=== PATIENT | female | born 1935 | race Caucasian/White ===

== ENCOUNTER 2017-05-02 08:00 | Outpatient (CLI) | payer MEDICARE, OTHER ==
[2017-05-02 18:06] LABS: ALBUMIN/GLOBULIN RATIO 1.6 (1.0-2.2); BILIRUBIN,TOTAL 1.1 mg/dL (0.2-1.0); BUN - BLOOD UREA NITROGEN 16 mg/dL (6-20); CALCIUM 8.9 mg/dL (8.5-10.3); CARBON DIOXIDE - CO2 26 mmol/L (21-32); CHLORIDE 100 mmol/L (101-111); CHOL/HDL RATIO 2.6 (<4.4); CHOLESTEROL 215 mg/dL; CREATININE 0.8 mg/dL (0.4-1.0); GFR - MDRD 69 (>89); GLUCOSE 91 mg/dL (70-100); HDL CHOLESTEROL 83 mg/dL; LDL/HDL RATIO 1.4 (<4.4); POTASSIUM 4.1 mmol/L (3.5-5.0); SODIUM 135 mmol/L (135-145); TOTAL PROTEIN 6.5 g/dL (6.7-8.2); TRIGLYCERIDES 78 mg/dL; VLDL CHOLESTEROL 16 mg/dL
== END 2017-05-02 08:01 | disposition home or self-care (01) ==
LOC: LAB.S 08:00
PROVIDERS: ATTEND Nurse Practitioner Family
DX: E78.5 Hyperlipidemia, unspecified (principal)
CPT/HCPCS: 36415; 80053; 80061; 84443

== ENCOUNTER 2018-08-30 15:08 | Outpatient (CLI) | payer MEDICARE, OTHER ==
--- NOTE | 2018-08-31 09:27 | CT Report ---
Reason: UPPER > LOWER NECK PAIN Procedure Date: 08/30/2018 Accession Number: [id number] / [id number] Procedure: CT - Cervical Spine W/O CPT Code: FULL RESULT: EXAM: CT CERVICAL SPINE WITHOUT CONTRAST DATE: 08/30/2018 03:20 PM. HISTORY: Upper/lower neck pain. COMPARISONS: XR CERVICAL SPINE 4 VIEW (G) 08/02/2018 3:[address] C-SPINE W CONTRAST 02/25/2010 2:38 PM. XR CHEST PA AND LAT 04/10/2012 3:[address] ABDOMEN, PELVIS W/CONTRAST 11/20/2014 7:26 PM. TECHNIQUE: Thin-section axial images were acquired of the cervical spine without contrast. Post-processing: Coronal and sagittal reformats. Other: None. In accordance with CT protocol optimization, one or more of the following dose reduction techniques were utilized for this exam: automated exposure control, adjustment of mA and/or KV based on patient size, or use of iterative reconstructive technique. FINDINGS: Alignment: 1. Anterolisthesis 3 mm C4 and C5. 2. Anterolisthesis 2 mm C5 on C6. 3. Anterolisthesis 2 mm C6 on C7. Bones: Negative for odontoid fracture. The atlas is without disruption. Remote to C7 vertebral body fracture. The facet joints are negative for fracture. Mild chronic compression C7 vertebral body with concave deformity of the inferior right C7 vertebral body endplate and 20% loss of vertebral body height without change as compared to the CT 02/25/2010. Focal sclerosis right C7 vertebral body is without change as compared to the CT 02/25/2010. Interspace Levels/Facets: C1-C2: Unremarkable. C2-C3: Right C2-C3 ankylosis. Left C2-C3 severe facet hypertrophy with ankylosis. Negative for central spinal canal stenosis or foraminal stenosis. C3-C4: Central posterior 2 mm disk protrusion. Severe bilateral facet hypertrophic arthropathy. Mild left foraminal stenosis. Moderate right foraminal stenosis from facet hypertrophic arthropathy. C4-C5: Negative for central spinal canal stenosis. Severe facet hypertrophic arthropathy. The left neural foramen is negative for stenosis. Moderate right foraminal stenosis from facet hypertrophy. C5-C6: Posterior 4 mm central calcified disk herniation with mild central spinal canal stenosis. Central AP spinal canal diameter is 9 mm. Severe bilateral facet hypertrophic arthropathy. The posterior calcified disk herniation has developed since the CT myelogram cervical spine 02/25/2010. Severe right foraminal stenosis. Negative for left foraminal stenosis. Mild disk degeneration. C6-C7: Moderate disk degeneration. Posterior central 2 mm disk protrusion. Severe facet hypertrophic arthropathy. The right neural foramen is negative for stenosis. Mild left foraminal stenosis from facet hypertrophy. C7-T1: Moderate disk degeneration. Severe facet joint arthrosis. Negative for foraminal stenosis. Posterior 2 mm disk protrusion osteophyte complex. Musculature: Normal. No fatty atrophy. Other: The paravertebral and prevertebral soft tissues are unremarkable. The lung apices are clear. IMPRESSION: 1. Central posterior 4 mm calcified disk herniation C5-C6 interspace with mild central spinal canal stenosis. Disk herniation is new as compared to the CT myelogram 02/25/2010. 2. Remote compression fracture right C7 vertebral body with concave deformity of the inferior vertebral body endplate, 20% loss of vertebral body height and right C6 vertebral body sclerosis without change as compared to the CT cervical spine 02/25/2010. 3. There is severe diffuse cervical facet joint arthrosis and ankylosis of the C2-C3 facet joints. 4. Anterolisthesis 3 mm C4 on C5, anterolisthesis 2 mm C5 on C6 and anterolisthesis 2 mm C6 on C7. 5. Severe right C5-C6, moderate right C4-C5 and moderate right C3-C4 foraminal stenosis. RADIA
== END 2018-08-30 15:09 | disposition home or self-care (01) ==
LOC: DI 15:08
PROVIDERS: ATTEND Physical Medicine & Rehabilitation
DX: M47.812 Spondylosis without myelopathy or radiculopathy, cervical region (principal); R51 Headache; M50.33 Other cervical disc degeneration, cervicothoracic region; M48.03 Spinal stenosis, cervicothoracic region; M50.222 Other cervical disc displacement at C5-C6 level; M43.22 Fusion of spine, cervical region
CPT/HCPCS: 72125

== ENCOUNTER 2018-12-29 08:00 | Outpatient (CLI) | payer MEDICARE, OTHER | END 2018-12-29 23:59 | disposition home or self-care (01) | LOC: LAB.R 08:00 | PROVIDERS: ATTEND Physician Assistant Medical | DX: R30.0 Dysuria (principal) | CPT/HCPCS: 87086 ==

== ENCOUNTER 2019-04-05 15:25 | Outpatient (CLI) | payer MEDICARE, OTHER ==
[2019-04-05 17:52] LABS: ALBUMIN 3.8 g/dL (3.2-5.5); ALBUMIN/GLOBULIN RATIO 1.3 (1.0-2.2); BILIRUBIN,TOTAL 0.8 mg/dL (0.2-1.0); CALCIUM 8.9 mg/dL (8.5-10.3); CREATININE 0.9 mg/dL (0.4-1.0); TOTAL PROTEIN 6.8 g/dL (6.7-8.2)
== END 2019-04-05 15:26 | disposition home or self-care (01) ==
LOC: LAB.S 15:25
PROVIDERS: ATTEND Physician Assistant Medical
DX: E87.6 Hypokalemia (principal)
CPT/HCPCS: 36415; 80053

== ENCOUNTER 2019-07-17 07:45 | Outpatient (CLI) | payer MEDICARE, OTHER ==
[2019-07-17 14:44] LABS: ALBUMIN 4.1 g/dL (3.2-5.5); ALBUMIN/GLOBULIN RATIO 1.9 (1.0-2.2); ALKALINE PHOSPHATASE 35 IU/L (42-121); ALT ALANINE AMINOTRANSFERASE 27 IU/L (10-60); AST ASPARTATE AMINOTRANSFERASE 24 IU/L (10-42); BILIRUBIN,TOTAL 1.5 mg/dL (0.2-1.0); BUN - BLOOD UREA NITROGEN 17 mg/dL (6-20); CALCIUM 8.9 mg/dL (8.5-10.3); CARBON DIOXIDE - CO2 28 mmol/L (21-32); CHLORIDE 101 mmol/L (101-111); CHOL/HDL RATIO 2.7 (<4.4); CHOLESTEROL 271 mg/dL; CREATININE 0.9 mg/dL (0.4-1.0); GFR - MDRD 60 (>89); GLUCOSE 94 mg/dL (70-100); HDL CHOLESTEROL 99 mg/dL; LDL CHOLESTEROL,CALCULATED 151 mg/dL; LDL/HDL RATIO 1.5 (<4.4); SODIUM 136 mmol/L (135-145); TOTAL PROTEIN 6.3 g/dL (6.7-8.2); VLDL CHOLESTEROL 21 mg/dL
== END 2019-07-17 07:46 | disposition home or self-care (01) ==
LOC: LAB.S 07:45
PROVIDERS: ATTEND Physician Assistant Medical
DX: Z51.81 Encounter for therapeutic drug level monitoring (principal); Z79.899 Other long term (current) drug therapy; E78.5 Hyperlipidemia, unspecified
CPT/HCPCS: 36415; 80053; 80061; 83721

== ENCOUNTER 2019-08-22 11:00 | Outpatient (CLI) | payer MEDICARE, OTHER | END 2019-08-22 23:59 | disposition home or self-care (01) | LOC: LAB.R 11:00 | PROVIDERS: ATTEND Physician Assistant Medical | DX: J02.9 Acute pharyngitis, unspecified (principal) | CPT/HCPCS: 87070 ==

== ENCOUNTER 2019-08-28 14:55 | Outpatient (CLI) | payer MEDICARE, OTHER ==
--- NOTE | 2019-08-29 11:40 | DEXA Report ---
Reason: POSTMENOPAUSAL Procedure Date: 08/28/2019 Accession Number: [id number] / [id number] Procedure: DEX - Dexa Spine and/or Hip CPT Code: Final Report FULL RESULT: EXAM: Dexa Spine and/or Hip, Dexa Forearm DATE: 08/28/2019 3:45 PM CLINICAL HISTORY: POSTMENOPAUSAL TECHNIQUE: Dual energy x-ray absorptiometry (DXA) was performed on a [employer] System. Regions measured are the AP Spine and left forearm. Patient has bilateral hip replacements. COMPARISON: None. In accordance with the International Society for Clinical Densitometry (ISCD) guidelines, data from previous exams may be reanalyzed using current recommendations and techniques. This is done to allow a more accurate basis for comparison with the current study. FINDINGS: The data for the lumbar spine is as follows: Fusion hardware lower lumbar spine BMD (g/cm/cm) T-SCORE Z-SCORE REGION L1 1.159 0.2 1.6 L2 1.388 1.6 2.9 TOTAL 1.274 0.9 2.2 NOTE: All evaluable vertebrae are used for classification The data for the left forearm is as follows: BMD (g/cm/cm) T-SCORE Z-SCORE REGION 1/3 0.698 -2 1 NOTE: The 33% radius of the nondominant forearm is used for classification. IMPRESSION: THE WHO CLASSIFICATION BASED ON THE INTERNATIONAL REFERENCE STANDARD IS OSTEOPENIA, REFERENCE LEFT FOREARM. THE FRACTURE RISK IS INCREASED. RECOMMENDATION: Patients with diagnosis of osteoporosis or osteopenia should have regular bone mineral density assessment. For those eligible for Medicare, routine testing is allowed once every 2 years. Testing frequency can be increased for patients who have rapidly progressing disease or for those who are receiving medical therapy to restore bone mass. COMMENT: World Health Organization (WHO) definitions for osteoporosis and osteopenia: NORMAL BMD: T-score at -1.0 or higher, fracture risk is low OSTEOPENIA BMD: T-score between -1.0 and -2.5, fracture risk is increased. OSTEOPOROSIS BMD: T-score at -2.5 or lower, fracture risk is high. National Osteoporosis Foundation recommends: 1. Obtain adequate dietary calcium (at least 1200 mg per day) and vitamin D (400-800 international units per day). 2. Participate, as appropriate, in regular weightbearing and muscle-strengthening exercise. 3. Avoid tobacco use and reduce alcohol and caffeine intake. 4. For more detailed information see the website at www.NOF.org.
== END 2019-08-28 14:56 | disposition home or self-care (01) ==
LOC: DI 14:55
PROVIDERS: ATTEND Physician Assistant Medical
DX: M85.832 Other specified disorders of bone density and structure, left forearm (principal); Z78.0 Asymptomatic menopausal state; Z96.643 Presence of artificial hip joint, bilateral; Z98.1 Arthrodesis status
CPT/HCPCS: 77080; 77081

== ENCOUNTER 2019-08-28 14:56 | Outpatient (CLI) | payer MEDICARE, OTHER ==
--- NOTE | 2019-08-29 12:43 | Mammography Report ---
Reason: ROUTINE MAMMO Procedure Date: 08/28/2019 Accession Number: [id number] / [id number] Procedure: NADINE - Screening Mammo w/Manny CPT Code: Final Report FULL RESULT: EXAM: Screening Mammo w/Manny DATE: 08/28/2019 3:52 PM CLINICAL HISTORY: Routine screening. History of benign right breast biopsy. TECHNIQUE: (B) - Bilateral CC and MLO views were obtained. COMPARISON: 02/04/2012, 04/21/2010, 08/30/2008, 12/22/2007 PARENCHYMAL PATTERN: (A) - The breasts demonstrate scattered fibroglandular densities bilaterally. FINDINGS: No significant interval change. There are no suspicious masses, calcifications, or areas of distortion. IMPRESSION: Negative examination. BI-RADS category 1. RECOMMENDATION: (ANNUAL) - Recommend routine annual screening mammography. BI-RADS CATEGORY: (1) - Negative. STANDARD QUALIFYING STATEMENTS: 1. This examination was not reviewed with the aid of Computer-Aided Detection (CAD). 2. A negative or benign imaging report should not preclude biopsy if clinically suspicious findings are present. 3. Dense breasts may obscure an underlying neoplasm. 4. This examination was reviewed with the aid of 3D breast imaging (tomosynthesis).
== END 2019-08-28 14:57 | disposition home or self-care (01) ==
LOC: DI 14:56
PROVIDERS: ATTEND Physician Assistant Medical
DX: Z12.31 Encounter for screening mammogram for malignant neoplasm of breast (principal)
CPT/HCPCS: 77063; 77067

== ENCOUNTER 2020-03-06 07:00 | Outpatient (CLI) | payer MEDICARE, OTHER ==
[2020-03-06 21:52] LABS: CANDIDA GROUP DNA NEGATIVE (NEGATIVE); CANDIDA KRUSEI DNA NEGATIVE (NEGATIVE); TRICHOMONAS VAGINALIS DNA NEGATIVE (NEGATIVE)
== END 2020-03-06 23:59 | disposition home or self-care (01) ==
LOC: LAB.R 07:00
PROVIDERS: ATTEND Physician Assistant
DX: R30.0 Dysuria (principal)
CPT/HCPCS: 87086; 87661; 87801

== ENCOUNTER 2020-04-06 05:59 | Outpatient (CLI) | payer MEDICARE, OTHER | END 2020-04-06 06:00 | disposition short-term general hospital (02) | LOC: EMS 05:59 | PROVIDERS: ATTEND Surgery | DX: R11.2 Nausea with vomiting, unspecified (principal); R10.30 Lower abdominal pain, unspecified | CPT/HCPCS: A0425; A0427 ==

== ENCOUNTER 2021-03-31 03:19 | Outpatient (CLI) | payer MEDICARE, OTHER | END 2021-03-31 03:20 | disposition critical access hospital (66) | LOC: EMS 03:19 | DX: R29.898 Other symptoms and signs involving the musculoskeletal system (principal); R11.0 Nausea | CPT/HCPCS: A0425; A0427 ==

== ENCOUNTER 2021-03-31 03:54 | Inpatient (IN) | payer MEDICARE, OTHER ==
[2021-03-31] MEDS ORDERED: METOCLOPRAMIDE 10 MG/2 ML VIAL IVP STA (04:18)
[2021-03-31] MEDS ORDERED: cloNIDine 0.1 MG TABLET PO STA (04:23)
[2021-03-31 04:32] LABS: BASOPHILS # (AUTO) 0.1 10^3/uL (0.0-0.1); BASOPHILS % (AUTO) 1.6 %; EOSINOPHILS # (AUTO) 0.2 10^3/uL (0.0-0.7); EOSINOPHILS % (AUTO) 4.2 %; HCT - HEMATOCRIT 36.6 % (37.0-47.0); HGB - HEMOGLOBIN 12.4 g/dL (12.0-16.0); LYMPHOCYTES # (AUTO) 1.8 10^3/uL (1.5-3.5); MEAN CORPUSCULAR HGB CONC 33.9 g/dL (32.0-36.0); MEAN CORPUSCULAR VOLUME 94.3 fL (81.0-99.0); MEAN PLATELET VOLUME 10.7 fL (7.9-10.8); MONOCYTES # (AUTO) 0.6 10^3/uL (0.0-1.0); MONOCYTES % (AUTO) 9.7 %; PLT - PLATELET COUNT 161 10^3/uL (130-450); RED BLOOD COUNT 3.88 10^6/uL (4.20-5.40); RED CELL DISTRIBUTION WIDTH 13.4 % (12.0-15.0); WHITE BLOOD COUNT 5.7 x10^3/uL (4.8-10.8)
--- NOTE | 2021-03-31 04:33 | ED Physician Documentation ---
History of Present Illness - Stated complaint Stated Complaint: BLE NUMBNESS - Chief complaint Chief Complaint: Neuro - History obtained from History obtained from: Patient - Additonal information Additional information: 85-year-old woman with history of high cholesterol, spinal stenosis/chronic back pain, frequent utis, p/w malaise since 12:30am. Patient states she has been getting up frequently during the night to urinate, especially the past couple days, and this evening tried to get up to go to the bathroom and found her legs were too weak. She called her daughter for help who didn't answer the phone, then called ems. On scene, they assisted her to the restroom and then brought her in. she developed nausea en route and was given zofran 4mg iv with some improvement, but endorsed continued nausea in the ED. fingerstick on scene in the 170s. hypertensive en route. patient endorses BL LE weakness, generalized malaise. denies cp, soa, carpio, vision changes, lightheadedness, numbness. denies urinary or fecal incontinence or retention, groin or extremity numbness. Endorses "feeling jittery". Review of Systems Ten Systems: 10 systems reviewed and negative Constitutional: reports: Fatigue. denies: Fever, Chills Neurologic: reports: Generalized weakness. denies: Focal weakness, Numbness PD PAST MEDICAL HISTORY - Allergies Allergies/Adverse Reactions: Allergies Allergy/AdvReac Type Severity Reaction Status Date / Time Penicillins Allergy Unknown Verified 03/31/21 04:31 PD ED PE NORMAL - Vitals Vital signs reviewed: Yes - General General: Alert and oriented X 3, No acute distress, Well developed/nourished - HEENT HEENT: Atraumatic, PERRL, EOMI - Neck Neck: Supple, no meningeal sign - Cardiac Cardiac: RRR - Respiratory Respiratory: No respiratory distress, Clear bilaterally - Abdomen Abdomen: Non tender, Non distended - Back Back: No spinal TTP - Derm Derm: Normal color, Warm and dry - Extremities Extremities: No deformity, Normal ROM s pain - Neuro Neuro: Alert and oriented X 3, art museum docent 2-12 intact, No motor deficit, No sensory deficit, Normal speech - Psych Psych: Other (flat affect, limited eye contact. mood is described as "jittery") Results - Vitals Vitals: Vital Signs - 24 hr 09/02/1103/31/21 03/31/21 04:03 04:08 06:08 Temperature 36.2 C L Heart Rate 80 62 76 Respiratory 14 18 18 Rate Blood Pressure 194/85 H 179/78 H 184/83 H O2 Saturation 96 94 97 Oxygen O2 Source Room air - EKG (time done) 0426 Rate: Rate (enter#) (76) Rhythm: NSR [place]: Normal Intervals: Normal NE QRS: Normal Ischemia: Normal ST segments - Labs Labs: Laboratory Tests 03/31/21 03/31/21 03/31/21 04:25 04:25 04:25 WBC 5.7 RBC 3.88 L Hgb 12.4 Hct 36.6 L MCV 94.3 MCH 32.0 H MCHC 33.9 RDW 13.4 Plt Count 161 MPV 10.7 Neut # (Auto) 3.0 Lymph # (Auto) 1.8 [place] # (Auto) 0.6 Eos # (Auto) 0.2 Baso # (Auto) 0.1 Absolute Nucleated RBC 0.00 Nucleated RBC % 0.0 Sodium 136 Potassium 3.7 Chloride 99 L Carbon Dioxide 25 Anion Gap 12.0 BUN 19 Creatinine 0.7 Estimated GFR (MDRD) 80 L Glucose 120 H Calcium 9.2 Total Bilirubin 0.9 AST 23 ALT 19 Alkaline Phosphatase 34 L Troponin I High Sens 5.1 Total Protein 6.9 Albumin 4.0 Globulin 2.9 Albumin/Globulin Ratio 1.4 Lipase 23 Urine Color Urine Clarity Urine pH Ur Specific [place] Urine Protein Urine Glucose (UA) Urine Ketones Urine Occult Blood Urine Nitrite Urine Bilirubin Urine Urobilinogen Ur Leukocyte Esterase Urine RBC Urine WBC Ur Squamous Epith Cells Urine Bacteria Urine Culture Comments 03/31/21 04:45 WBC RBC Hgb Hct MCV MCH MCHC RDW Plt Count MPV Neut # (Auto) Lymph # (Auto) [place] # (Auto) Eos # (Auto) Baso # (Auto) Absolute Nucleated RBC Nucleated RBC % Sodium Potassium Chloride Carbon Dioxide Anion Gap BUN Creatinine Estimated GFR (MDRD) Glucose Calcium Total Bilirubin AST ALT Alkaline Phosphatase Troponin I High Sens Total Protein Albumin Globulin Albumin/Globulin Ratio Lipase Urine Color YELLOW Urine Clarity CLEAR Urine pH 7.0 Ur Specific [place] 1.010 Urine Protein NEGATIVE Urine Glucose (UA) NEGATIVE Urine Ketones NEGATIVE Urine Occult Blood NEGATIVE Urine Nitrite NEGATIVE Urine Bilirubin NEGATIVE Urine Urobilinogen 0.2 (NORMAL) Ur Leukocyte Esterase NEGATIVE Urine RBC None Seen Urine WBC 0-3 Ur Squamous Epith Cells RARE Squamous Urine Bacteria None Seen Urine Culture Comments NOT INDICATED PD MEDICAL DECISION MAKING - ED course ED course: 85-year-old woman with past medical history of hyperlipidemia, spinal stenosis, presents with generalized weakness this evening as well as urinary symptoms past couple of days. No focal deficits on exam. She is very hypertensive here in the emergency department but and endorses only generalized malaise, no specific symptoms of end organ damage (eg FND, CP, SOA, dizziness, CARPIO). Will obtain labs, ekg, chest xray, administer BP medication and reevaluate. Nausea improved s/p reglan, patient is feeling better but still with difficulty getting out of bed without assistance. Markedly unsteady gait ambulating to bathroom. Patient normally does not require assistance to ambulate and states this is new. Will obtain CT lumber spine given hx of spinal stenosis and L3/4 fusion. MRI available at 7:30am . 7am - upon my reevaluation patient in NAD, states she feels very tired. AOX3. CN2-12 intact. normal cerebellar testing. No lateralizing symptoms however she does have 1+ weakness BL LE. able to lift BL LE for 5 seconds without drift, but unable to resist downward pressure. does have decreased rectal tone on [place]. Brown stool. Had difficulty turning to side in bed and had to be assisted, which she says is not normal for her. d/w Dr. Hein, daytime MD for further management and care. patient to have MRI when it opens at 7:30am.
[2021-03-31 04:44] LABS: ALBUMIN/GLOBULIN RATIO 1.4 (1.0-2.2); BILIRUBIN,TOTAL 0.9 mg/dL (0.2-1.0); CALCIUM 9.2 mg/dL (8.5-10.3); CREATININE 0.7 mg/dL (0.4-1.0); POTASSIUM 3.7 mmol/L (3.5-5.0); TOTAL PROTEIN 6.9 g/dL (6.7-8.2)
[2021-03-31 04:50] LABS: BILIRUBIN,URINE NEGATIVE (NEGATIVE); CLARITY,URINE CLEAR (CLEAR); GLUCOSE, URINE (UA) NEGATIVE (NEGATIVE); KETONES,URINE (UA) NEGATIVE (NEGATIVE); LEUKOCYTE ESTERASE, URINE NEGATIVE (NEGATIVE); NITRITE,URINE NEGATIVE (NEGATIVE); OCCULT BLOOD,URINE NEGATIVE (NEGATIVE); PROTEIN,URINE NEGATIVE (NEGATIVE); UROBILINOGEN,URINE 0.2 (NORMAL) E.U./dL (NORMAL)
[2021-03-31 04:55] LABS: BACTERIA,URINE None Seen /HPF (None Seen); RBC,URINE None Seen /HPF (0-5); SQUAMOUS EPITHELIAL CELL,UR RARE Squamous (<= Few); WBC,URINE 0-3 /HPF (0-5)
--- NOTE | 2021-03-31 07:49 | CT Report ---
PROCEDURE: LUMBAR SPINE WO INDICATIONS: BL LE weakness, unsteady gait TECHNIQUE: Noncontrast 3 mm thick sections acquired from the T12 level to the sacrum. Sagittal and coronal refo rmats were constructed. For radiation dose reduction, the following was used: automated exposure co ntrol, adjustment of mA and/or kV according to patient size. COMPARISON: None. FINDINGS: Image quality: Excellent. Bones: Postsurgical changes compatible with L4-L5 PLIF. Orthopedic hardware is intact. No lucencies at the bone-hardware interface. There is mild L4-L5 anterolisthesis. There is trace L1-L2 and L2-L3 r etrolisthesis. No acute vertebral body compression fractures. No suspicious lytic or blastic bony le sions. No pars defects. Bilateral hip arthroplasties noted. T12-L1: Disc height is normal. Mild, diffuse disc bulge. No central stenosis. No neural foraminal na rrowing. No definite neural compression. L1-L2: Disc height is normal. Mild, diffuse disc bulge. Mild bilateral facet hypertrophy. No centr al stenosis. Mild bilateral neural foraminal narrowing. No definite neural compression. L2-L3: Slight loss of disc height. Mild to moderate diffuse disc bulge. Zset-[id number] facet hyp ertrophy. Moderate ligamentum flavum hypertrophy. Moderate narrowing of the central canal. Mild right and moderate left neural foraminal narrowing. No definite neural compression. L3-L4: Disc height is normal. Mild, diffuse disc bulge. Moderate bilateral facet hypertrophy. Mild narrowing of the central canal. Moderate bilateral neural foraminal narrowing. No definite neural com pression. L4-L5: Status post fusion. No central stenosis. Mild right and moderate left neural foraminal narro wing. No definite neural compression. L5-S1: Loss of disc height. Mild to moderate diffuse disc bulge. Right central disc protrusion. Mil d bilateral facet hypertrophy. No central stenosis. Mild bilateral neural foraminal narrowing. No def inite neural compression. Soft tissues: No retroperitoneal masses or hematomas. Visualized aorta is normal in caliber. IMPRESSION: 1. Status post L4-L5 fusion. 2. Multilevel degenerative disc disease. 3. Multilevel facet arthropathy. 4. No severe central canal narrowing. 5. No severe neural foraminal narrowing. 6. No definite neural compression. 7. No fracture. No acute osseous lesion. If there is continued clinical concern for pathology, then M RI should be considered for further evaluation. Reviewed by: Marquita Cuellar MD, PhD on 03/31/2021 7:48 AM PDT Approved by: Marquita Cuellar MD, PhD on 03/31/2021 7:48 AM PDT Station ID: [id number]
--- NOTE | 2021-03-31 08:07 | XRAY Report ---
PROCEDURE: Chest 1 View X-Ray INDICATIONS: Chest Pain TECHNIQUE: One view of the chest was acquired. COMPARISON: Chest x-ray 04/10/2012 FINDINGS: Surgical changes and devices: None. Lungs and pleura: There is increased interstitial markings. Inferior most aspect of the right costoph renic angle is not included within the [id number]. Mediastinum: Mediastinal contours appear normal. Heart size is enlarged. Bones and chest wall: No suspicious bony lesions. Overlying soft tissues appear unremarkable. IMPRESSION: Mild appearance of increased interstitial markings. This could represent chronic disease or reactive airway disease. The above findings are concordant with preliminary report. Reviewed by: Ambar Hernandez MD on 03/31/2021 8:06 AM PDT Approved by: Ambar Hernandez MD on 03/31/2021 8:06 AM PDT Station ID: [id number]
--- NOTE | 2021-03-31 11:12 | MRI Report ---
PROCEDURE: Lumbar Spine W/O INDICATIONS: hx spinal stenosis, lumbar fusion. new BL NATALIE taylorn TECHNIQUE: Noncontrast sagittal T1 spin echo and T2 fast echo, sagittal STIR, axial T1 and T2 fast spin echo thr ough the lumbar spine. In cases with scoliosis, additional coronal T2 fast spin echo may be performe d. COMPARISON: CT lumbar spine 03/31/2021.. FINDINGS: Image quality: Excellent. Alignment and Curvature: There is trace retrolisthesis of L2 on L3, L5 on S1 and trace anterolisthes is of L4 on L5. Bone Marrow: Marrow is of normal overall signal. No acute vertebral body compression fractures. Spinal Cord: Conus medullaris terminates at the L1-L2 level. Visualized cord demonstrates normal si gnal and size. Paraspinous Soft Tissues: No paravertebral masses. Bilateral T2 hyperintensities are present within the kidneys. Discs: Moderate severe desiccation is present in the spine. L1-L2: Mild disc bulge without spinal stenosis. Mild bilateral foraminal narrowing with facet and ligamentum flavum hypertrophy. L2-L3: Mild disc bulge with moderate spinal stenosis. Mild right and moderate left foraminal narro wing with facet and ligamentum flavum hypertrophy. Minimal epidural lipomatosis is present at L3-L4: Mild disc bulge with mild to moderate spinal stenosis. Moderate bilateral foraminal narrowin g with facet and ligamentum flavum hypertrophy. L4-L5: Postsurgical changes are present. No spinal stenosis. Moderate left and mild right foraminal narrowing with facet and ligamentum flavum hypertrophy. L5-S1: Mild disc bulge with superimposed right posterior central protrusion. No spinal stenosis. Mi ld bilateral foraminal narrowing. IMPRESSION: 1. Degenerative and postsurgical changes. 2. Spinal stenosis is most notable at L2-3 and L3-4 secondary to disc bulge with contributing effect of facet/ligamentum flavum arthropathy. 3. Multilevel foraminal narrowing is present most notable at L3-4 secondary to facet arthropathy. The re is no definitively visualized neural compression. Reviewed by: Ambar Hernandez MD on 03/31/2021 11:10 AM PDT Approved by: Ambar Hernandez MD on 03/31/2021 11:10 AM PDT Station ID: [id number]
[2021-03-31] MEDS ORDERED: ONDANSETRON 4 MG/2 ML VIAL IVP STA (11:40)
[2021-03-31] MEDS ORDERED: IOPAMIDOL-300 100 ML VIAL ONE (11:52)
--- NOTE | 2021-03-31 11:59 | ED Physician Documentation ---
ED Addendum - Addendum Addendum: The MRI does not show any acute abnormalities of her lumbar spine. 03/31/21 11:57 I was called to the patient's room to evaluate her as she started having nausea and vomiting. Noted to have slurred speech, right-sided facial drooping, right arm and right leg weakness. Last seen normal was about 30 minutes ago. A stat head CT, stroke protocol was ordered along with CT angiogram of the head and neck. Blood sugar is normal 03/31/21 13:00 Telestroke was utilized, Dr. Bacon the stroke neurologist saw the patient via video conferencing and does not recommend TPA at this time. He states that the symptoms are mild and the symptom onset is unclear given her leg weakness last night, right greater than left. This could explain her symptoms last night as well. Does not recommend treating hypertension at this time. He does recommend admitting the patient, loading with Plavix 150 mg p.o. and aspirin 81 mg p.o. Also recommends MRI and usual stroke work-up. Discussed the case with Dr. Jean, hospitalist who accepts This document was made in part using voice recognition software. While efforts are made to proofread this document, sound alike and grammatical errors may occur. NIHSS - Time Time: 11:47 - Level of Consciousness Level of consciousness: (0) Alert, Keenly responsive LOC Questions: (0) Answers both Q's correct LOC Commands: (0) Performs both correctly - Gaze Best Gaze: (0) Normal - Visual Visual: (0) No loss - Facial Palsy Facial Palsy: (2) Partial paralysis - Motor Arms (both separate) Motor Arm (right): (2) Some effort against gravity Motor Arm (left): (0) No drift - Motor Legs (both separate) Motor Leg (right): (1) Drift Motor Leg (left): (0) No drift - Limb Ataxia Limb Ataxia: (0) Absent - Sensory Sensory: (0) Normal - Best Language Best Language: (0) No aphasia - Dysarthria Dysarthria: (1) Yffy-sk-qjugmgpt dysarthria - Extinction and Inattention (formally neg Extinction and inattention: (0) No abnormality - Total Score/Results Total Score/Result: 6 Departure - Departure Disposition: 66 [facility] DC/Xfer Clinical Impression: Cerebrovascular accident (CVA) Qualifiers: CVA mechanism: unspecified Qualified Code(s): I63.9 - Cerebral infarction, unspecified Condition: Stable
--- NOTE | 2021-03-31 12:12 | CT Report ---
PROCEDURE: Head W/O Stroke Protocol INDICATIONS: R sided weakness TECHNIQUE: Noncontrast 4.5 mm thick angled axial sections acquired from the foramen magnum to the vertex, with c oronal reformats. For radiation dose reduction, the following was used: automated exposure control, adjustment of mA and/or kV according to patient size. COMPARISON: FINDINGS: Image quality: Excellent. CSF spaces: Basal cisterns are patent. No extra-axial fluid collections. Ventricles are normal in size and shape. Brain: No intracranial hemorrhage, mass, or mass effect. Roland-white matter interface appears preserv ed. Skull and face: Calvarium and visualized facial bones are intact, without suspicious lesions. Sinuses: Visualized sinuses and mastoids are clear. IMPRESSION: 1. No acute intracranial abnormality. No imaging contraindications to TPA. Findings discussed Dr. Hein on 03/31/2021 at 12:09 PM. This study fulfills neurological imaging criteria for inclusion or exclusion of acute stroke therapie s based on available published neurological imaging guidelines. Reviewed by: Kyle Griggs MD on 03/31/2021 12:11 PM PDT Approved by: Kyle Griggs MD on 03/31/2021 12:11 PM PDT Station ID: [id number]
[2021-03-31] MEDS ORDERED: LABETALOL 20 MG/4 ML SYRINGE IVP STA (12:18)
[2021-03-31] MEDS ORDERED: IOPAMIDOL-300 100 ML VIAL IVP ONE (12:20)
[2021-03-31] MEDS ORDERED: CLOPIDOGREL 75 MG TABLET PO STA (12:48)
[2021-03-31] MEDS ORDERED: ASPIRIN CHEW 81 MG TABLET PO STA (12:49)
--- NOTE | 2021-03-31 12:52 | CT Report ---
PROCEDURE: ANGIO NECK W INDICATIONS: R sided weakness CONTRAST: IV CONTRAST: Isovue 300 ml: 80 PO CONTRAST: *NO PO CONTRAST TECHNIQUE: After the administration of intravenous contrast, 1.5 mm axial sections acquired from the aortic arch to the [place] of [place]. Coronal 3-D maximum intensity projection (MIP) and/or volume rendering ref ormats were then performed. For radiation dose reduction, the following was used: automated exposur e control, adjustment of mA and/or kV according to patient size. COMPARISON: Concurrent CT of the head and CT angiogram of the brain. FINDINGS: Image quality: Excellent. Carotid system: The great vessels demonstrate a conventional anatomy as they arise from the aortic a rch. The origins of the common carotid arteries appear patent. The common carotid arteries demonstr ate normal calibers with retropharyngeal course demonstrated bilaterally, left greater than right. T he bifurcation regions appear widely patent bilaterally. The internal carotid arteries demonstrate n ormal caliber and course bilaterally without high-grade stenoses. Posterior circulation: The origins of the vertebral arteries appear patent. The more superior porti ons of the vertebral arteries demonstrate normal course and caliber. They join to form a normal appe aring basilar artery. Soft tissues: Visualized neck soft tissues demonstrate heterogeneity of the thyroid with an ill-defi sherie nodule measuring up to 0.9 cm in the inferior right lobe and a suspected nodule in the posterior left lobe measuring up to 1.4 cm. Bones: No suspicious bony lesions. Visualized cervical spine demonstrates straightening of the cerv ical lordosis with minimal anterolisthesis at C4-C5 and C7-T1. There is moderate degenerative disc di sease within the lower cervical spine. Moderate to severe multilevel facet arthropathy demonstrated t hroughout the cervical spine. IMPRESSION: 1. No high-grade stenosis or occlusion of the head and neck arteries. The carotid bulbs appear widely patent. 2. Nonspecific nodules within the thyroid bilaterally. Further evaluation may be obtained with thyroi d ultrasound if clinically indicated. The estimate of stenosis included in the report of the imaging study was calculated using the NASCET method Reviewed by: Kyle Griggs MD on 03/31/2021 12:51 PM PDT Approved by: Kyle Griggs MD on 03/31/2021 12:51 PM PDT Station ID: [id number]
[2021-03-31] MEDS ORDERED: ACETAMINOPHEN 325 MG TABLET PO PRN (13:01)
--- NOTE | 2021-03-31 13:44 | HISTORY & PHYSICAL EXAMINATION ---
Chief Complaint - Chief Complaint Chief Complaint: N/V, weakness R leg > L and new facial droop in ED History of Present Illness - Admitted From Admitted From:: ED - History Obtained From History obtained from: ED provider and the patient - History of Present Illness HPI Comment/Other: This is an 85-year-old white female who has a history of spinal stenosis and chronic low back pain. She lives alone, is independent. She woke in the middle the night noticing that her right leg felt numb and slightly on the left as well and possibly right leg weaker than the left. She presented to the ED with these complaints and was waiting several hours to undergo MRI of the lumbosacral spine. MRI was done and showed degenerative joint disease, and spinal stenosis was confirmed. Upon returning from imaging dept, she was noted to have vomiting and a right facial droop and there was right arm weakness compared to her left. She then underwent STAT CT of the head with stroke protocol as well as CTA of the head and neck. There were no vascular occlusion seen on imaging and there was no bleeding, mass-effect or stroke seen on the CT scan. The ED provider reached out to the neurologist in telestroke. It was decided she was not a TPA candidate because the symptoms of the right greater than left leg weakness and numbness could have been the beginning of her stroke symptoms, which had started greater than 12 hours previously. Her blood pressure was 207 in the ED. The patient is being admitted for stroke, management of nausea and vomiting and hypertension. We discussed the patient's code wishes at this time and she wishes to be a DNR. History - Past Medical History Cardiovascular: reports: None Respiratory: reports: None Neuro: reports: None GI: reports: Other (She had similar nausea and vomiting when she had gallstones and needed her gallbladder removed) Psych: reports: None MRSA Hx?: No - Past Surgical History General: reports: Cholecystectomy - Family & Social History Family History: Mother: , CVA/TIA, Father: , Other family: Alive and Well (3 children) Living arrangement: At home Living Situation: Alone Social History Notes: She is a non-smoker, drinks rare alcohol. She is independent, drives a car, does her own laundry and home activities. - Substance History Use: Uses substance without health or social issues: NONE Meds/Allgy - Home Medications Home Medications: Ambulatory Orders Medication Instructions Recorded Confirmed Cyclosporine [Restasis Multidose] 1 drops EACHEYE BID 03/31/21 03/31/21 traMADol [Ultram] 50 mg PO BID PRN 03/31/21 03/31/21 - Allergies Allergies/Adverse Reactions: Allergies Allergy/AdvReac Type Severity Reaction Status Date / Time Penicillins Allergy Unknown Verified 03/31/21 04:31 Review of Systems - All Other Systems All Other Systems: reports: Reviewed and negative Exam - Vital Signs Reviewed Vital Signs: Yes Vital Signs: Vital Signs x48h Pulse Resp BP Pulse Ox 03/31/21 13:30 76 17 181/77 H 97 03/31/21 13:12 66 15 183/75 H 99 03/31/21 12:42 71 14 177/55 H 98 03/31/21 12:39 87 17 207/82 H 99 03/31/21 12:12 86 16 192/90 H 98 03/31/21 11:00 82 14 180/70 H 97 03/31/21 09:00 68 13 152/68 H 94 03/31/21 06:08 76 18 184/83 H 97 - Physical Exam General Appearance: positive: Moderate distress (from nausea) Eyes Bilateral: positive: Normal inspection, EOMI ENT: positive: ENT inspection nml, No signs of dehydration Neck: positive: Nml inspection, No JVD Respiratory: positive: No respiratory distress, Breath sounds nml Cardiovascular: positive: Regular rate & rhythm (Distant heart sounds), No murmur Abdomen: positive: Non-tender (Obese, soft, diminished bowel sounds, no guarding or rebound) Skin: positive: Warm, Dry, Pallor Extremities: positive: Non-tender, No pedal edema Neurologic/Psychiatric: positive: Oriented x3, Facial droop (R facial droop, normal speech), Other (R arm 3/5, R lfoot 4/5 strength) Conclusion/Plan - Problem List (1) Cerebrovascular accident (CVA) Conclusion/Plan: Her neurologic deficits persists and started greater than 12 hours ago, and it was due to this fact that the telestroke Neurologist did not advise using TPA. Will admit to Inpt status to evaluate and treat her acute CVA. The head and neck CTAs were done and showed no occlusive vessels. Will order a head MRI to confirm a completed stroke. Telemetry to watch for Afib. Echo to evaluate for a cardiac source of embolism. Will order evaluation from PT, OT and Speech Therapy. She may need a SNF for rehab at time of DCh, and will need more help at home if she returns home (where she lived alone up until now). SW consult for arranging this. Will empirically start a clear liquid/nectar thickened diet. Continue with daily aspirin and Plavix, as per the Neurologist's recommendations to the ED provider, unless the emesis is heme positove. Qualifiers: CVA mechanism: unspecified Qualified Code(s): I63.9 - Cerebral infarction, unspecified (2) HTN (hypertension) Conclusion/Plan: She does not carry a Dx of HTN, may have high BP due to anxiety over this event or may have had untreated HTN or it is due to the stroke. Will allow permissive HTN for 24-48 hours, then begin BP treatment if needed. (3) N&V (nausea and vomiting) Conclusion/Plan: Etiology unclear; I suspect it may be due to very elevated BP. Her COVID PCR is neg as a cause of N/V She had 1 normal troponin, will repeat to check for cardiac ischemia as cause of N/V. Her CT of lower spine showed no outright abdominal pathology. Will obtain CT abdomen. Will order clear liquids, if she can tolerate these. Give antiemetics prn. Will start gentle iv hydration, if she cannot tolerate a diet to stay hydrated. Will heme test the vomitus, because it is brown, and start Protonix iv. (4) Chronic low back pain Conclusion/Plan: Since spinal stenosis was causing this chronic symptom (of LBP), her complaints of bilateral leg weakness and numbness was initially felt to be of LS spine etiology, therefore she first had CT then MRI of the spine. No new lower back problems were found. Will order her usual pain meds, if any, once the med list is reconciled and if she can tolerate po meds. (5) Hx of hyperlipidemia Conclusion/Plan: Will check fasting lipid panel and treat per guidelines Will resume any (cholesterol) meds, once her med list is reconciled (6) Multiple thyroid nodules Conclusion/Plan: This will need further eval with US, as advised by the Radiology reader. - Lab Results Fish Bones: 03/31/21 04:25 03/31/21 04:25
[2021-03-31 13:56] LABS: PT - PROTHROMBIN TIME 11.3 secs (9.9-12.6)
--- NOTE | 2021-03-31 14:01 | CT Report ---
PROCEDURE: ANGIO HEAD W/WO INDICATIONS: R sided weakness CONTRAST: IV CONTRAST: Isovue 300 ml: 80 PO CONTRAST: *NO PO CONTRAST TECHNIQUE: Precontrast 4.5 mm thick angled axial sections acquired from the foramen magnum to the vertex. Afte r the administration of intravenous contrast, 1 mm thick sections acquired through the [place] of [place] is. Postcontrast 4.5 mm thick sections then re-acquired from the foramen magnum to the vertex. 3-di mensional wrrowwp-xtmcmsylg-btifdzcyto (MIP) and/or volume rendering reformats were acquired of the c entral intracranial vasculature. For radiation dose reduction, the following was used: automated ex posure control, adjustment of mA and/or kV according to patient size. COMPARISON: Concurrent CTA of the neck and CT of the brain. FINDINGS: Image quality: There is slight motion artifact limiting evaluation. Anterior circulation: Intracranial internal carotid arteries are patent bilaterally. The paired ant erior cerebral arteries are patent bilaterally. The middle cerebral arteries are patent. The anteri or communicating artery are patent. No high-grade stenosis, occlusion, or discrete filling defects. No cerebral aneurysm identified. Posterior circulation: Visualized portions of the vertebral arteries appear patent and join to form a patent basilar artery. The posterior cerebral arteries are patent bilaterally. No high-grade steno sis, occlusion, or discrete filling defects. No cerebral aneurysm identified. CSF spaces: Ventricles are normal in size and shape. Basal cisterns are patent. No extra-axial flu id collections. Brain: No intracranial mass, mass effect, or hematoma collections. Roland-white matter interface appea rs preserved. No definite abnormal intracranial enhancement. Skull and face: Calvarium and facial bones appear intact, without suspicious lesions. Sinuses: Visualized sinuses and mastoids are clear. IMPRESSION: 1. No high-grade stenosis, filling defects, or occlusion of the central intracranial arteries. Findings discussed with Dr. Hein on 03/31/2021 at 12:40 PM. Reviewed by: Kyle Griggs MD on 03/31/2021 2:00 PM PDT Approved by: Kyle Griggs MD on 03/31/2021 2:00 PM PDT Station ID: [id number]
[2021-03-31 14:56] LABS: B. PARAPERTUSSIS- RESP PCR PAN NOT DETECTED; B. PERTUSSIS- RESP PCR PANEL NOT DETECTED; C. PNEUMONIAE- RESP PCR PANEL NOT DETECTED; CORONAVIRUS 229E-RESP PCR NOT DETECTED; CORONAVIRUS HKU1-RESP PCR NOT DETECTED; CORONAVIRUS NL63-RESP PCR NOT DETECTED; CORONAVIRUS OC43-RESP PCR NOT DETECTED; HUMAN METAPNEUMOVIRUS NOT DETECTED; INFLUENZA A- RESP PCR PANEL NOT DETECTED; INFLUENZA B - RESP PCR PANEL NOT DETECTED; M. PNEUMONIAE- RESP PCR PANEL NOT DETECTED; PARAINFLUENZA VIRUS 1 NOT DETECTED; PARAINFLUENZA VIRUS 2 NOT DETECTED; PARAINFLUENZA VIRUS 3 NOT DETECTED; PARAINFLUENZA VIRUS 4 NOT DETECTED; RHINOVIRUS/ENTEROVIRUS NOT DETECTED; RSV- RESP PCR PANEL NOT DETECTED; SARS-CoV-2 -RESP PCR PANEL NOT DETECTED
[2021-03-31] MEDS ORDERED: D5NS W/20 MEQ KCL 1,000 ML IV SCH (17:00)
[2021-03-31] MEDS ORDERED: METOCLOPRAMIDE 10 MG/2 ML VIAL ONE (17:00)
[2021-03-31] MEDS: SODIUM CHLORIDE FLUSH 0.9% 10 ML SYRINGE IVP SCH (17:12)
[2021-03-31] MEDS: METOCLOPRAMIDE 10 MG/2 ML VIAL IVP PRN (17:13)
[2021-03-31] MEDS ORDERED: PANTOPRAZOLE 40 MG VIAL IV STA (17:14)
[2021-03-31] MEDS: SODIUM CHLORIDE FLUSH 0.9% 10 ML SYRINGE IVP PRN (17:22)
[2021-03-31 17:25] LABS: GASTROCCULT POSITIVE (Negative)
[2021-03-31] MEDS ORDERED: CARBOXYMETHYLCELLULOSE OPHTH DROPS EACHEYE PRN (17:34)
[2021-03-31] MEDS: ACETAMINOPHEN 1,000 MG/100 ML 100 ML IV PRN (18:04)
[2021-03-31] MEDS: ONDANSETRON 4 MG/2 ML VIAL IVP PRN (20:17)
--- NOTE | 2021-03-31 20:26 | CT Report ---
PROCEDURE: Abdomen/Pelvis WO INDICATIONS: N/V TECHNIQUE: Noncontrast 5 mm thick sections acquired from the diaphragms to the symphysis. 5 mm coronal and sagi ttal reformats were then performed. For radiation dose reduction, the following was used: automated exposure control, adjustment of mA and/or kV according to patient size. COMPARISON: CT abdomen and pelvis 11/20/2014. FINDINGS: Image quality: Excellent. ABDOMEN: Lung bases: Pleural calcifications at the right lung base. Trace atelectasis in the left lung. No ple ural effusion. Heart size is normal. Small hiatal hernia. Solid organs: Liver and spleen are normal in size. Gallbladder is surgically absent. Pancreas is n ormal in contours. Fatty atrophy. No adrenal nodules. Kidneys are normal in size. No hydronephrosis. There is excreted contrast in the renal collecting systems. There is a low-density simple appearing cyst in the right kidney medially measuring 2.3 cm. Peritoneum and bowel: No small bowel obstruction. There is prominent stool in the right colon. The ce cum is positioned superior medially. The appendix is not definitely seen. Nodes and vessels: No retroperitoneal or mesenteric adenopathy by size criteria. Aorta and inferior vena cava are normal in caliber. Miscellaneous: Small umbilical hernia. Colon near the hernia neck. PELVIS: Genitourinary: Bladder wall thickness is normal. Bladder is distended. Bladder is opacified with con trast. Uterus is absent. Miscellaneous: No inguinal hernias or adenopathy. Bones: No suspicious bony lesions. L4-L5 pedicle screw fixation. No vertebral body compression frac tures. Bilateral hip arthroplasties. IMPRESSION: 1. No acute abnormality identified. No free fluid. 2. Prominent stool the right colon. This suggests constipation. 3. Small umbilical hernia. No bowel obstruction. 4. Right calcified pleural plaque. Reviewed by: William Brink MD on 03/31/2021 8:25 PM PDT Approved by: William Brink MD on 03/31/2021 8:25 PM PDT Station ID: [id number]
[2021-03-31] MEDS: polyethylene glycoL 3350 17 GM PACKET PO SCH (21:26)
[2021-04-01] MEDS: METOCLOPRAMIDE 10 MG/2 ML VIAL IVP PRN ×3 (01:01→19:22)
[2021-04-01] MEDS: SODIUM CHLORIDE FLUSH 0.9% 10 ML SYRINGE IVP SCH ×3 (01:05→17:39)
[2021-04-01] MEDS: ACETAMINOPHEN 1,000 MG/100 ML 100 ML IV PRN (01:07)
[2021-04-01] MEDS: traMADol 50 MG TABLET PO PRN ×2 (02:18→15:42)
[2021-04-01] MEDS ORDERED: SIMETHICONE CHEW 80 MG TABLET PO PRN (02:59)
[2021-04-01] MEDS: ONDANSETRON 4 MG/2 ML VIAL IVP PRN ×2 (06:22→14:22)
[2021-04-01 08:00] LABS: BASOPHILS % (AUTO) 0.2 %; EOSINOPHILS # (AUTO) 0.1 10^3/uL (0.0-0.7); EOSINOPHILS % (AUTO) 0.9 %; HCT - HEMATOCRIT 38.6 % (37.0-47.0); HGB - HEMOGLOBIN 13.2 g/dL (12.0-16.0); LYMPHOCYTES # (AUTO) 1.2 10^3/uL (1.5-3.5); LYMPHOCYTES % (AUTO) 11.2 %; MEAN CORPUSCULAR HGB CONC 34.2 g/dL (32.0-36.0); MEAN CORPUSCULAR VOLUME 93.7 fL (81.0-99.0); MEAN PLATELET VOLUME 10.8 fL (7.9-10.8); MONOCYTES # (AUTO) 0.7 10^3/uL (0.0-1.0); MONOCYTES % (AUTO) 6.4 %; NEUTROPHILS # (AUTO) 8.8 10^3/uL (1.5-6.6); NEUTROPHILS % (AUTO) 80.8 %; PLT - PLATELET COUNT 168 10^3/uL (130-450); RED BLOOD COUNT 4.12 10^6/uL (4.20-5.40); RED CELL DISTRIBUTION WIDTH 13.4 % (12.0-15.0); WHITE BLOOD COUNT 10.9 x10^3/uL (4.8-10.8)
[2021-04-01] MEDS ORDERED: PANTOPRAZOLE 40 MG VIAL IVP SCH (08:00)
[2021-04-01 08:11] LABS: CALCIUM 8.6 mg/dL (8.5-10.3); CREATININE 0.7 mg/dL (0.4-1.0); POTASSIUM 3.4 mmol/L (3.5-5.0)
[2021-04-01 08:50] LABS: CHOL/HDL RATIO 2.7 (<4.4); CHOLESTEROL 281 mg/dL; HDL CHOLESTEROL 103 mg/dL; LDL CHOLESTEROL,CALCULATED 167 mg/dL; LDL/HDL RATIO 1.6 (<4.4); TRIGLYCERIDES 57 mg/dL; VLDL CHOLESTEROL 11 mg/dL
[2021-04-01] MEDS: polyethylene glycoL 3350 17 GM PACKET PO SCH (09:11)
[2021-04-01] MEDS: PANTOPRAZOLE 40 MG VIAL IVP SCH ×2 (09:12→21:33)
[2021-04-01] MEDS: D5NS W/20 MEQ KCL 1,000 ML IV SCH ×2 (09:35→21:34)
[2021-04-01] MEDS: POTASSIUM CHLOR 10 MEQ/100 ML 10 MEQ/100 ML BAG IV SCH ×2 (10:00→14:00)
--- NOTE | 2021-04-01 10:38 | CONSULTATION NOTE ---
Referring Provider Name of Referring Provider:: Miranda Consult Date: 04/02/21 Chief Complaint - Chief Complaint Chief Complaint: coffee ground emesis History of Present Illness - History of Present Illness HPI Comment/Other: 85 yo female admitted with acute, evolving stroke and noted to have coffee ground emesis. No hematemesis or melena. History - Past Medical History Cardiovascular: reports: None Respiratory: reports: None Neuro: reports: CVA Endocrine/Autoimmune: reports: None GI: reports: Other (She had similar nausea and vomiting when she had gallstones and needed her gallbladder removed) : reports: None Psych: reports: None Musculoskeletal: reports: None Derm: reports: None MRSA Hx?: No - Past Surgical History General: reports: Cholecystectomy Ortho: reports: Hip replacement, Spine surgery - Family & Social History Family History: Mother: , CVA/TIA, Father: , Other family: Alive and Well (3 children) Living arrangement: At home Living Situation: Alone Social History Notes: She is a non-smoker, drinks rare alcohol. She is independent, drives a car, does her own laundry and home activities. - Substance History Use: Uses substance without health or social issues: NONE Meds/Allgy - Home Medications Home Medications: Ambulatory Orders Medication Instructions Recorded Confirmed Cyclosporine [Restasis Multidose] 1 drops EACHEYE BID 03/31/21 03/31/21 traMADol [Ultram] 50 mg PO BID PRN 03/31/21 03/31/21 - Allergies Allergies/Adverse Reactions: Allergies Allergy/AdvReac Type Severity Reaction Status Date / Time Penicillins Allergy Unknown Verified 03/31/21 04:31 Exam - Vital Signs Reviewed Vital Signs: Yes Vital Signs: Vital Signs x48h Temp Pulse Resp BP Pulse Ox 04/01/21 07:30 36.6 C 72 20 139/52 H 97 04/01/21 05:00 37.1 C 79 20 148/94 H 96 - Physical Exam General Appearance: positive: No acute distress (Right facial droop) Abdomen: positive: Non-tender, No organomegaly, Nml bowel sounds, No distention. negative: Tenderness Conclusion and Plan - Lab Results Laboratory Results 04/01/21 07:56: Triglycerides 57, Cholesterol 281 H, LDL Cholesterol, Calc 167 H, VLDL Cholesterol 11, HDL Cholesterol 103, LDL/HDL Ratio 1.6, Cholesterol/HDL Ratio 2.7 04/01/21 07:56: Sodium 135, Potassium 3.4 L, Chloride 99 L, Carbon Dioxide 25, Anion Gap 11.0, BUN 14, Creatinine 0.7, Estimated GFR (MDRD) 80 L, Glucose 132 H, Calcium 8.6 04/01/21 07:56: WBC 10.9 H, RBC 4.12 L, Hgb 13.2, Hct 38.6, MCV 93.7, MCH 32.0 H, MCHC 34.2, RDW 13.4, Plt Count 168, MPV 10.8, Neut # (Auto) 8.8 H, Lymph # (Auto) 1.2 L, [place] # (Auto) 0.7, Eos # (Auto) 0.1, Baso # (Auto) 0.0, Absolute Nucleated RBC 0.00, Nucleated RBC % 0.0 03/31/21 17:10: Gastric Fluid pH 2.0, Gastric Occult Blood POSITIVE A 03/31/21 16:26: Troponin I High Sens 8.1 03/31/21 12:56: Nasal Adenovirus (PCR) NOT DETECTED, Nasal B. parapertussis DNA (PCR) NOT DETECTED, Nasal Coronavir 229E PCR NOT DETECTED, Nasal Coronavir HKU1 PCR NOT DETECTED, Nasal Coronavir NL63 PCR NOT DETECTED, Nasal Coronavir OC43 PCR NOT DETECTED, Nasal Enterovir/Rhinovir PCR NOT DETECTED, Nasal Influenza B PCR NOT DETECTED, Nasal Influenza A PCR NOT DETECTED, Nasal Parainfluen 1 PCR NOT DETECTED, Nasal Parainfluen 2 PCR NOT DETECTED, Nasal Parainfluen 3 PCR NOT DETECTED, Nasal Parainfluen 4 PCR NOT DETECTED, Nasal RSV (PCR) NOT DETECTED, Nasal B.pertussis DNA PCR NOT DETECTED, Nasal C.pneumoniae (PCR) NOT DETECTED, Demetrio Human Metapneumo PCR NOT DETECTED, Nasal M.pneumoniae (PCR) NOT DETECTED, Nasal SARS-CoV-2 (PCR) NOT DETECTED 03/31/21 11:51: PT 11.3, INR 1.0 03/31/21 04:45: Urine Color YELLOW, Urine Clarity CLEAR, Urine pH 7.0, Ur Specific [place] 1.010, Urine Protein NEGATIVE, Urine Glucose (UA) NEGATIVE, Urine Ketones NEGATIVE, Urine Occult Blood NEGATIVE, Urine Nitrite NEGATIVE, Urine Bilirubin NEGATIVE, Urine Urobilinogen 0.2 (NORMAL), Ur Leukocyte Esterase NEGATIVE, Urine RBC None Seen, Urine WBC 0-3, Ur Squamous Epith Cells RARE Squamous, Urine Bacteria None Seen, Urine Culture Comments NOT INDICATED 03/31/21 04:25: Troponin I High Sens 5.1 03/31/21 04:25: Sodium 136, Potassium 3.7, Chloride 99 L, Carbon Dioxide 25, Anion Gap 12.0, BUN 19, Creatinine 0.7, Estimated GFR (MDRD) 80 L, Glucose 120 H, Calcium 9.2, Total Bilirubin 0.9, AST 23, ALT 19, Alkaline Phosphatase 34 L, Total Protein 6.9, Albumin 4.0, Globulin 2.9, Albumin/Globulin Ratio 1.4, Lipase 23 03/31/21 04:25: WBC 5.7, RBC 3.88 L, Hgb 12.4, Hct 36.6 L, MCV 94.3, MCH 32.0 H, MCHC 33.9, RDW 13.4, Plt Count 161, MPV 10.7, Neut # (Auto) 3.0, Lymph # (Auto) 1.8, [place] # (Auto) 0.6, Eos # (Auto) 0.2, Baso # (Auto) 0.1, Absolute Nucleated RBC 0.00, Nucleated RBC % 0.0 - Diagnosis Diagnosis: Acute CVA. Probable gastritis secondaty to stroke - Plan Plan: Recommend PPI and observation for GI bleeding. Would not recommend EGD at this time due to acute CVA.
--- NOTE | 2021-04-01 11:38 | XRAY Report ---
PROCEDURE: Chest 1 View X-Ray INDICATIONS: SOB TECHNIQUE: One view of the chest was acquired. COMPARISON: Plain films dated 03/31/2021 FINDINGS: Surgical changes and devices: None. Lungs and pleura: No pleural effusions or pneumothorax. Lungs are clear. Mediastinum: Mediastinal contours appear normal. Heart size is normal. Bones and chest wall: No suspicious bony lesions. Overlying soft tissues appear unremarkable. IMPRESSION: No acute process. Reviewed by: Rosa Maria Felix MD on 04/01/2021 11:37 AM PDT Approved by: Rosa Maria Felix MD on 04/01/2021 11:37 AM PDT Station ID: [id number]
--- NOTE | 2021-04-01 13:54 | MRI Report ---
PROCEDURE: Brain W/O INDICATIONS: Stroke TECHNIQUE: Noncontrast axial T1 spin echo, axial T2 fast spin echo, sagittal and axial FLAIR, coronal T2 fast sp in echo, axial gradient echo, axial diffusion and ADC through the brain. COMPARISON: None. FINDINGS: Image quality: Excellent. CSF Spaces: Basal cisterns are patent. No extra-axial fluid collections. Ventricles are normal in size and shape. Brain: No intracranial masses or hemorrhage. Roland/white matter interface is normal. There is mild diffuse cerebral volume loss. Mild degree of patchy high FLAIR signal within the periventricular and subcortical white matter, as well as the jamie, consistent with small vessel disease. Brainstem appear s normal. Diffusion-weighted images demonstrate a 30 mm anteroposterior by 15 mm transverse region o f elevated signal intensity within the left mid [place] radiata extending into the left basal ganglia and external capsule. This lesion demonstrates moderate FLAIR signal elevation. Normal intravascular flow voids are present. Skull and face: Calvarium has normal marrow signal. Orbits appear normal. Sinuses: Sinuses and mastoids are clear. IMPRESSION: 1. Subacute left [place]kee[place] radiata/basal ganglia infarct. 2. Volume loss and small vessel ischemic disease. Reviewed by: Rosa Maria Felix MD on 04/01/2021 1:52 PM PDT Approved by: Rosa Maria Felix MD on 04/01/2021 1:52 PM PDT Station ID: [id number]
--- NOTE | 2021-04-01 15:46 | PROVIDER PROGRESS NOTE ---
Assessment/Plan - Problem List (1) Cerebrovascular accident (CVA) Qualifiers: CVA mechanism: unspecified Qualified Code(s): I63.9 - Cerebral infarction, unspecified Assessment/Plan: Her neuro deficit is worse today: the R arm is flaccid and R hand has 0/5 strength, R foot has 0/5 strength, R facial droop is slightly worse than yesterday and there is new tongue deviation to L The brain MRI shows a 3cm x 1.5 cm stroke of the L Swallow eval was done and she does not aspirate but is slow to chew food. Will advance her diet slowly (due to presumed bleeding peptic ulcer) PT and OT evals to be done today Echo was done today and showed no clot or shunt and normal LVEF Her anti-plt meds are on hold due to active GI bleeding (see below). I explained all the above [id number] to her and to her son Ethan at bedside She will need rehab with PT, OT and Speech and I described what Inpt stroke rehab includes to her and son, and she wants to try to be accepted to Inpt rehab. I informed the [facility] RN Any of that. Continue telemetry; no Afib has been seen to date. Will possibly restart daily aspirin tomorrow, if ulcer sx have resolved and if Hgb does not drop significantly. Will not plan on dual anti-plt agents with Plavix plus ASA, due to GI bleed. Her lipid panel shows LDL of 167, therefore will start a statin when she can swallow a pill. (2) UGI bleed Assessment/Plan: Her gastric liquid that she vomited yesterday tested (+) for brayden. This morning she was witnessed to vomit coffee grounds. She has a presumed stress ulcer. Protonix iv bid has been started. Will add Sucralfate liquid qid as well. Appreciate surg consult (was requested to decide about an EGD). Will follow H/H daily or more often if it is dropping Will hold anti-plt agents for 1-2 days. I explained to pt and son in the room that unfortunately, she cannot get these daily yet for manging the acute stroke, due to active bleeding. (3) Hx of gastroesophageal reflux (GERD) Assessment/Plan: Today the pt could offer more Hx of GERD and that she takes OTC Pepcid b.i.d. (4) N&V (nausea and vomiting) Assessment/Plan: Will continue npo while she is still vomiting and she can start clear liquid diet in a.m. tomorrow since she has no appetite, has epigastric pain today, but the nausea and vomiting have decreased with anti-emetics. (5) Chronic low back pain Assessment/Plan: Her son described that she uses Ultram at home and has needed Fentanyl Patches to treat pain in the past. She also has DJD and was on "immuno-suppressants" in the past. Her Ultram dose was resumed here. (6) Hx of hyperlipidemia Assessment/Plan: As per fasting lipid results and will eventually start a statin tablet (7) Multiple thyroid nodules Assessment/Plan: This will need more W/U as an outpt, since it is a new finding (8) HTN (hypertension) Assessment/Plan: Resolved. She has no Hx of HTN and BP has normalized. - Current Meds Current Meds: Current Medications Generic Name Dose Route Start Last Admin Trade Name Estradaq PRN Reason Stop Dose Admin Acetaminophen 100 mls @ 400 mls/hr 03/31/21 17:35 04/01/21 01:25 Ofirmev IV Infused Q6HR PRN Infusion PAIN Potassium Chloride/Dextrose/Sod Cl 1,000 mls @ 83.33 mls/hr 04/01/21 08:24 04/01/21 09:35 D5ns W/20 Meq Kcl IV 83.33 mls/hr .Q12H1M ALVARO Administration Metoclopramide HCl 10 mg 03/31/21 17:05 04/01/21 10:14 Metoclopramide 10 Mg/2 Ml Vial IVP 10 mg Q6H PRN Administration Nausea / Vomiting Ondansetron HCl 4 mg 03/31/21 13:01 04/01/21 14:22 Ondansetron 4 Mg/2 Ml Vial IVP 4 mg Q6HR PRN Administration Nausea / Vomiting Pantoprazole Sodium 40 mg 04/01/21 09:00 04/01/21 09:12 Pantoprazole 40 Mg Vial IVP 40 mg BID ALVARO Administration Polyethylene Glycol 17 gm 03/31/21 21:00 04/01/21 09:11 Polyethylene Glycol 3350 17 Gm Packet PO 17 gm DAILY ALVARO Administration Sodium Chloride 10 ml 03/31/21 13:01 03/31/21 17:22 Sodium Chloride Flush 0.9% 10 Ml Syringe IVP 20 ml PRN PRN Administration NEEDED PER PROVIDER ORDERS Sodium Chloride 10 ml 03/31/21 17:00 04/01/21 09:12 Sodium Chloride Flush 0.9% 10 Ml Syringe IVP 10 ml 0100,0900,1700 ALVARO Administration Tramadol HCl 50 mg 03/31/21 23:49 04/01/21 02:18 Tramadol 50 Mg Tablet PO 50 mg Q6H PRN Administration PAIN - Lab Result Fish Bone Diagrams: 04/01/21 07:56 04/01/21 07:56 - Additional Planning My Orders: My Active Orders 03/31/21 17:00 Sodium Chloride Flush 0.9% [Normal Saline Flush 0.9%] 10 ml IVP 0100,0900,1700 03/31/21 17:05 Metoclopramide Inj [Reglan Inj] 10 mg IVP Q6H PRN 03/31/21 17:34 Carboxymethylcellulose 1% Opht [Refresh 1% Ophth Drops] 1 drops EACHEYE Q4HR PRN 03/31/21 17:35 Acetaminophen 1,000 mg/100 ml [Ofirmev] 100 ml IV Q6HR 03/31/21 21:00 polyethylene glycoL 3350 [Miralax] 17 gm PO DAILY 04/01/21 General Surgery Consult [CONS] Routine 04/01/21 08:23 DIET [NPO except Meds] [DIET] 04/01/21 08:24 D5ns W/20 Meq KCl 1,000 ml IV 83.33 mls/hr 04/01/21 09:00 Pantoprazole [Protonix] 40 mg IVP BID 04/02/21 05:00 BMP - BASIC METABOLIC PANEL [CHEM] DAILYLAB CBC W/O DIFF (HEMOGRAM) [HEME] DAILYLAB 04/03/21 05:00 BMP - BASIC METABOLIC PANEL [CHEM] DAILYLAB CBC W/O DIFF (HEMOGRAM) [HEME] DAILYLAB Subjective - Subjective Patient Reports: Other (Has no appetite, has epigastric pain, but nausea is better and vomiting has decreased) Objective Vital Signs: Vital Signs - 24 hr 03/31/21 03/31/21 04/01/21 15:47 20:12 00:58 Temperature 36.6 C 37.1 C 37.2 C Heart Rate [ 77 94 94 Brachial] Heart Rate [ Supine] Respiratory 18 16 20 Rate Blood Pressure 146/69 H 165/62 H [Left Brachial artery] Blood Pressure 160/79 H [Right Brachial artery] Blood Pressure [Supine] O2 Saturation 99 98 97 O2 Saturation [ Supine] 04/01/21 04/01/21 04/01/21 05:00 07:30 11:33 Temperature 37.1 C 36.6 C 36.6 C Heart Rate [ 79 72 84 Brachial] Heart Rate [ Supine] Respiratory 20 20 20 Rate Blood Pressure 148/94 H 139/52 H 160/60 H [Left Brachial artery] Blood Pressure [Right Brachial artery] Blood Pressure [Supine] O2 Saturation 96 97 98 O2 Saturation [ Supine] 04/01/21 11:45 Temperature Heart Rate [ Brachial] Heart Rate [ 80 Supine] Respiratory Rate Blood Pressure [Left Brachial artery] Blood Pressure [Right Brachial artery] Blood Pressure 160/60 H [Supine] O2 Saturation O2 Saturation [ 98 Supine] Oxygen O2 Source Room air I&O (Last 24 Hrs): Intake and Output Totals x24h 03/30/21 03/31/21 04/01/21 23:59 23:59 23:59 Intake Total 100 680 Output Total 200 730 Balance -100 -50 General: Alert, Oriented x3 HEENT: Mucous membr. moist/pink Neck: Supple, No JVD Neuro: Alert, Other (R hand 0/5 strength, R foot 0/5 strength, spotty sensation of foot, facial droop R) Cardiovascular: Regular rate, No murmurs Respiratory: Chest non-tender, No respiratory distress, Breath sounds nml Abdomen: Normal bowel sounds, Soft, No tenderness Extremities: No clubbing, No edema - Results Results: Laboratory Results WBC 10.9 x10^3/uL (4.8-10.8) H 04/01/21 07:56 RBC 4.12 10^6/uL (4.20-5.40) L 04/01/21 07:56 Hgb 13.2 g/dL (12.0-16.0) 04/01/21 07:56 Hct 38.6 % (37.0-47.0) 04/01/21 07:56 MCV 93.7 fL (81.0-99.0) 04/01/21 07:56 MCH 32.0 pg (27.0-31.0) H 04/01/21 07:56 MCHC 34.2 g/dL (32.0-36.0) 04/01/21 07:56 RDW 13.4 % (12.0-15.0) 04/01/21 07:56 Plt Count 168 10^3/uL (130-450) 04/01/21 07:56 MPV 10.8 fL (7.9-10.8) 04/01/21 07:56 Neut # (Auto) 8.8 10^3/uL (1.5-6.6) H 04/01/21 07:56 Lymph # (Auto) 1.2 10^3/uL (1.5-3.5) L 04/01/21 07:56 Pratt # (Auto) 0.7 10^3/uL (0.0-1.0) 04/01/21 07:56 Eos # (Auto) 0.1 10^3/uL (0.0-0.7) 04/01/21 07:56 Baso # (Auto) 0.0 10^3/uL (0.0-0.1) 04/01/21 07:56 Absolute Nucleated RBC 0.00 x10^3/uL 04/01/21 07:56 Nucleated RBC % 0.0 /100WBC 04/01/21 07:56 PT 11.3 secs (9.9-12.6) 03/31/21 11:51 INR 1.0 (0.8-1.2) 03/31/21 11:51 Sodium 135 mmol/L (135-145) 04/01/21 07:56 Potassium 3.4 mmol/L (3.5-5.0) L 04/01/21 07:56 Chloride 99 mmol/L (101-111) L 04/01/21 07:56 Carbon Dioxide 25 mmol/L (21-32) 04/01/21 07:56 Anion Gap 11.0 (6-13) 04/01/21 07:56 BUN 14 mg/dL (6-20) 04/01/21 07:56 Creatinine 0.7 mg/dL (0.4-1.0) 04/01/21 07:56 Estimated GFR (MDRD) 80 (>89) L 04/01/21 07:56 Glucose 132 mg/dL (70-100) H 04/01/21 07:56 Calcium 8.6 mg/dL (8.5-10.3) 04/01/21 07:56 Total Bilirubin 0.9 mg/dL (0.2-1.0) 03/31/21 04:25 AST 23 IU/L (10-42) 03/31/21 04:25 ALT 19 IU/L (10-60) 03/31/21 04:25 Alkaline Phosphatase 34 IU/L (42-121) L 03/31/21 04:25 Troponin I High Sens 8.1 ng/L (2.3-14.8) 03/31/21 16:26 Total Protein 6.9 g/dL (6.7-8.2) 03/31/21 04:25 Albumin 4.0 g/dL (3.2-5.5) 03/31/21 04:25 Globulin 2.9 g/dL (2.1-4.2) 03/31/21 04:25 Albumin/Globulin Ratio 1.4 (1.0-2.2) 03/31/21 04:25 Triglycerides 57 mg/dL (-149) 04/01/21 07:56 Cholesterol 281 mg/dL (-199) H 04/01/21 07:56 LDL Cholesterol, Calc 167 mg/dL (-129) H 04/01/21 07:56 VLDL Cholesterol 11 mg/dL 04/01/21 07:56 HDL Cholesterol 103 mg/dL (60-) 04/01/21 07:56 LDL/HDL Ratio 1.6 (<4.4) 04/01/21 07:56 Cholesterol/HDL Ratio 2.7 (<4.4) 04/01/21 07:56 Lipase 23 U/L (22-51) 03/31/21 04:25 Urine Color YELLOW 03/31/21 04:45 Urine Clarity CLEAR (CLEAR) 03/31/21 04:45 Urine pH 7.0 PH (5.0-7.5) 03/31/21 04:45 Ur Specific [place] 1.010 (1.002-1.030) 03/31/21 04:45 Urine Protein NEGATIVE mg/dL (NEGATIVE) 03/31/21 04:45 Urine Glucose (UA) NEGATIVE mg/dL (NEGATIVE) 03/31/21 04:45 Urine Ketones NEGATIVE mg/dL (NEGATIVE) 03/31/21 04:45 Urine Occult Blood NEGATIVE (NEGATIVE) 03/31/21 04:45 Urine Nitrite NEGATIVE (NEGATIVE) 03/31/21 04:45 Urine Bilirubin NEGATIVE (NEGATIVE) 03/31/21 04:45 Urine Urobilinogen 0.2 (NORMAL) E.U./dL (NORMAL) 03/31/21 04:45 Ur Leukocyte Esterase NEGATIVE (NEGATIVE) 03/31/21 04:45 Urine RBC None Seen /HPF (0-5) 03/31/21 04:45 Urine WBC 0-3 /HPF (0-5) 03/31/21 04:45 Ur Squamous Epith Cells RARE Squamous (<= Few) 03/31/21 04:45 Urine Bacteria None Seen /HPF (None Seen) 03/31/21 04:45 Urine Culture Comments NOT INDICATED 03/31/21 04:45 Nasal Adenovirus (PCR) NOT DETECTED 03/31/21 12:56 Nasal B. parapertussis DNA (PCR) NOT DETECTED 03/31/21 12:56 Nasal Coronavir 229E PCR NOT DETECTED 03/31/21 12:56 Nasal Coronavir HKU1 PCR NOT DETECTED 03/31/21 12:56 Nasal Coronavir NL63 PCR NOT DETECTED 03/31/21 12:56 Nasal Coronavir OC43 PCR NOT DETECTED 03/31/21 12:56 Nasal Enterovir/Rhinovir PCR NOT DETECTED 03/31/21 12:56 Nasal Influenza B PCR NOT DETECTED 03/31/21 12:56 Nasal Influenza A PCR NOT DETECTED 03/31/21 12:56 Nasal Parainfluen 1 PCR NOT DETECTED 03/31/21 12:56 Nasal Parainfluen 2 PCR NOT DETECTED 03/31/21 12:56 Nasal Parainfluen 3 PCR NOT DETECTED 03/31/21 12:56 Nasal Parainfluen 4 PCR NOT DETECTED 03/31/21 12:56 Nasal RSV (PCR) NOT DETECTED 03/31/21 12:56 Nasal B.pertussis DNA PCR NOT DETECTED 03/31/21 12:56 Nasal C.pneumoniae (PCR) NOT DETECTED 03/31/21 12:56 Demetrio Human Metapneumo PCR NOT DETECTED 03/31/21 12:56 Nasal M.pneumoniae (PCR) NOT DETECTED 09/07/21 12:56 Nasal SARS-CoV-2 (PCR) NOT DETECTED 03/31/21 12:56 Gastric Fluid pH 2.0 03/31/21 17:10 Gastric Occult Blood POSITIVE (Negative) A 03/31/21 17:10
--- NOTE | 2021-04-01 16:13 | ADVANCE CARE PLANNING NOTE ---
Advance Care Planning - Planning Encounter Date: 04/01/21 Time: 15:00 Purpose: To discuss her Dx of stroke and her goals of care Parties in Attendance: I spoke to the patient in bed in her room, her son Ethan was at bedside, and [employer] student, Olena Cortés, was in the room. Decisional Capacity of the Patient: She is communicative and her answers are clear, she appears to be making appropriate decisions. - Diagnosis for Encounter (1) Cerebrovascular accident (CVA) Qualifiers: CVA mechanism: unspecified Qualified Code(s): I63.9 - Cerebral infarction, unspecified Summary: She has been diagnosed with a L brain stroke, and has R arm and R leg weakness and R facial droop. The MRI brain imaging shows a 3 cm x 1.5 cm defect. I then explained the cause of strokes, the prognosis and plan options going forward. - Encounter Subjective/Patient's Story: She lived alone and took Pepcid OTC bid for GERD, and also has DJD and spinal stenosis and took Ultram for pain. She was independent. Her daughter lives next door, works daytime as a Teacher. Her of cancer many years ago. She gets nausea easily from Morphine and Dilaudid. If she has pain, a Fentytnyl patch helps. She used to be on immuno-therapy for arthritis and wanted to resume it again someday for foot pain. She awoke at midnight 2 nights ago with numbness and weakness of both legs, R>L, called her daughter, who did not answer, so she called 911 to be brought to the ER. Objective/Medical Story: She presented with sx of leg weakness/numbness suggesting worse spinal stenosis and then had further neuro defictis here in ED, a CODE stroke was done, she had no findings on STAT CT head, but was out of the window for tpa treatment per Neuro telestroke eval. She got ASA and Plavix in ED. Today the MRI of brain has defined her stroke. Her neuro deficit has worsened further since yesterday. She had her first N/V in the ambulance, before getting ASA and Plavix. Confounding this stroke has been >24 hours of N/V and it is heme (+) and coffee grounds later noted. Her ASA and Plavix have been stopped. Goals of Care: She hopes to return home and be independent. She wants to participate in Rehab to get better. She agrees to try Inpt rehab (if she qualifies) since she is motivated to get home. She agrees that she would need caregivers at her home if she goes home currently. Her daughter helps now, since she lives next door, but works during the day (is a Teacher). Her other daughter and son live OOT. She wants to give permission for us to speak to the daughters Saskia the DPNICK who lives next door, Saskia's Quinten, her son Ethan (who is at bedside now) and the other daughter Yancy. She wants to have DNR status. Plan: Continue with rehab with PT, OT and ST here. Resume Aspirin daily when the UGI bleeding has stopped. Continue empiric treatment for a bleeding stress ulcer. Determine where she will go for further rehab post-stroke. Son Ethan will let family know that pt will need caregivers at her home. DNR has already been ordered, as her CODE status. Code Status: Do Not Attempt Resuscitation Time spent on advance care plannin min
[2021-04-01] MEDS: SUCRALFATE 1 GM/10 ML UDC PO SCH ×2 (17:38→21:34)
[2021-04-02] MEDS: SODIUM CHLORIDE FLUSH 0.9% 10 ML SYRINGE IVP SCH ×3 (00:15→15:53)
[2021-04-02] MEDS: ONDANSETRON 4 MG/2 ML VIAL IVP PRN ×2 (00:28→08:14)
[2021-04-02] MEDS: traMADol 50 MG TABLET PO PRN ×2 (03:22→23:55)
[2021-04-02] MEDS: METOCLOPRAMIDE 10 MG/2 ML VIAL IVP PRN (03:37)
[2021-04-02 05:53] LABS: HCT - HEMATOCRIT 35.9 % (37.0-47.0); HGB - HEMOGLOBIN 12.3 g/dL (12.0-16.0); MEAN CORPUSCULAR HEMOGLOBIN 32.5 pg (27.0-31.0); MEAN CORPUSCULAR HGB CONC 34.3 g/dL (32.0-36.0); MEAN CORPUSCULAR VOLUME 94.7 fL (81.0-99.0); MEAN PLATELET VOLUME 10.9 fL (7.9-10.8); RED BLOOD COUNT 3.79 10^6/uL (4.20-5.40); RED CELL DISTRIBUTION WIDTH 13.6 % (12.0-15.0); WHITE BLOOD COUNT 9.2 x10^3/uL (4.8-10.8)
[2021-04-02 06:04] LABS: CALCIUM 8.1 mg/dL (8.5-10.3); CREATININE 0.6 mg/dL (0.4-1.0); POTASSIUM 3.5 mmol/L (3.5-5.0)
[2021-04-02] MEDS ORDERED: D5NS W/20 MEQ KCL 1,000 ML IV SCH (07:47)
[2021-04-02] MEDS: PANTOPRAZOLE 40 MG TABLET PO SCH ×2 (08:14→15:53)
[2021-04-02] MEDS: SUCRALFATE 1 GM/10 ML UDC PO SCH ×4 (08:14→21:41)
[2021-04-02] MEDS: polyethylene glycoL 3350 17 GM PACKET PO SCH (08:15)
[2021-04-02] MEDS: ONDANSETRON ODT 4 MG TABLET TL SCH ×2 (10:59→15:53)
[2021-04-02] MEDS ORDERED: cloNIDine 0.1 MG PATCH TOP SCH (11:00)
--- NOTE | 2021-04-02 12:57 | PROVIDER PROGRESS NOTE ---
Assessment/Plan - Problem List (1) Cerebrovascular accident (CVA) Qualifiers: CVA mechanism: unspecified Qualified Code(s): I63.9 - Cerebral infarction, unspecified Assessment/Plan: Her neuro deficit is significant. The brain MRI shows a 3cm x 1.5 cm stroke of the L Swallow eval was done 2 days ago, and she did not aspirate but was slow to chew food. Today, her swallow eval was re-done and she needs nectar thick liquids. Will also advance her diet to pureed. PT and OT evals done and she could qualify for Inpt rehab, if she has the stamina Echo was done and showed no clot or shunt and normal LVEF Her anti-plt meds are on hold due to active GI bleeding (see #2 below). I explained all the above findings to her and to her son Ethan at bedside yesterday in detail and performed and Advanced Care Plan re: her goals of care. She will need rehab with PT, OT and Speech Continue telemetry; no Afib has been seen to date. Will possibly restart daily aspirin soon, if ulcer sx have subsided and if Hgb does not drop significantly. Will not plan on dual anti-plt agents with Plavix plus ASA, due to GI bleed, only baby aspirin. Her lipid panel shows LDL of 167, therefore we started a statin qhs. (2) UGI bleed Assessment/Plan: Her gastric liquid that she vomited on the night of admission, tested (+) for heme, and then she had witnessed coffee ground emesis. She has a presumed stress ulcer. Gen Surg does not recommend an EGD, but to treat empirically. Protonix iv bid was started. Will change to po Protonix today. We also added Sucralfate liquid qid as well. Will follow H/H daily or more often if it is dropping Will hold anti-plt agents for 1-2 days. I explained to pt and son in the room that unfortunately, she cannot get these daily yet for managing the acute stroke, due to active gastric bleeding. (3) Hx of gastroesophageal reflux (GERD) Assessment/Plan: Yesterday the son gave more Hx of her having significant GERD and that she takes OTC Pepcid b.i.d. (4) N&V (nausea and vomiting) She started clear liquid diet this a.m. We will proceed to advance her diet cautiously and will order Antonio TL s cheduled AC Continue with prn iv anti-emetics. (5) Chronic low back pain Assessment/Plan: Her son described that she uses Ultram at home and has needed Fentanyl Patches to treat pain in the past. She also has DJD and was on "immuno-suppressants" in the past. Her Ultram dose was resumed here. (6) Hx of hyperlipidemia Assessment/Plan: Her fasting lipid results show elev LDL and we started a statin tablet (7) Multiple thyroid nodules Assessment/Plan: This will need more W/U as an outpt, since it is a new finding Will check TSH (8) HTN (hypertension) Assessment/Plan: She had no Hx of HTN and BP was better on Day #2, but is very elevated again today (180 syst) Start anti-hypertensive, since she is past the time we allow permissive HTN. Will start a topical Clonidine patch, so as not to add another tablet orally that may cause nausea or vomiting - Current Meds Current Meds: Current Medications Generic Name Dose Route Start Last Admin Trade Name Freq PRN Reason Stop Dose Admin Clonidine HCl 1 patch 04/02/21 11:00 04/02/21 10:58 Clonidine 0.1 Mg Patch TOP 1 patch Q7D ALVARO Administration Metoclopramide HCl 10 mg 03/31/21 17:05 04/02/21 03:37 Metoclopramide 10 Mg/2 Ml Vial IVP 10 mg Q6H PRN Administration Nausea / Vomiting Ondansetron HCl 4 mg 03/31/21 13:01 04/02/21 08:14 Ondansetron 4 Mg/2 Ml Vial IVP 4 mg Q6HR PRN Administration Nausea / Vomiting Ondansetron HCl 4 mg 04/02/21 11:00 04/02/21 10:59 Ondansetron Odt 4 Mg Tablet TL 4 mg AC ALVARO Administration Pantoprazole Sodium 40 mg 04/02/21 08:00 04/02/21 08:14 Pantoprazole 40 Mg Tablet PO 40 mg BIDAC ALVARO Administration Polyethylene Glycol 17 gm 03/31/21 21:00 04/02/21 08:15 Polyethylene Glycol 3350 17 Gm Packet PO 17 gm DAILY ALVARO Administration Sodium Chloride 10 ml 03/31/21 13:01 03/31/21 17:22 Sodium Chloride Flush 0.9% 10 Ml Syringe IVP 20 ml PRN PRN Administration NEEDED PER PROVIDER ORDERS Sodium Chloride 10 ml 03/31/21 17:00 04/02/21 08:14 Sodium Chloride Flush 0.9% 10 Ml Syringe IVP 10 ml 0100,0900,1700 ALVARO Administration Sucralfate 1 gm 04/01/21 16:00 04/02/21 10:58 Sucralfate 1 Gm/10 Ml Udc PO 1 gm 0700,1100,1600,2200 ALVARO Administration Tramadol HCl 50 mg 03/31/21 23:49 04/02/21 03:22 Tramadol 50 Mg Tablet PO 50 mg Q6H PRN Administration PAIN - Lab Result Fish Bone Diagrams: 04/02/21 05:17 04/02/21 05:17 - Additional Planning My Orders: My Active Orders 04/01/21 16:00 Sucralfate [Carafate] 1 gm PO 0700,1100,1600,2200 04/02/21 08:00 Pantoprazole [Protonix] 40 mg PO BIDAC 04/02/21 08:58 Miscellaenous Nursing Order [RC] QSHIFT 04/02/21 11:00 Ondansetron Odt [Zofran Odt] 4 mg TL AC cloNIDine 0.1 MG PATCH [[id number]] 1 patch TOP Q7D 04/02/21 Lunch DIET [Dysphagia Puree Diet] [DIET] 04/03/21 05:00 BMP - BASIC METABOLIC PANEL [CHEM] DAILYLAB CBC W/O DIFF (HEMOGRAM) [HEME] DAILYLAB TSH [THYROID STIMULATING HORMONE] [IAI] DAILYLAB Subjective - Subjective Patient Reports: Resting Comfortably Nursing Reports: Other (Reports that she is able to swallow liquids without coughing, is interested in advancing her diet, answers appropriately and with no memory problems.) Objective Vital Signs: Vital Signs - 24 hr 04/01/21 04/01/21 04/01/21 15:45 16:00 19:57 Temperature 37.5 C 37.4 C Heart Rate [ 90 99 Brachial] Heart Rate [ 95 Sitting] Heart Rate [ 88 Supine] Respiratory 20 22 Rate Blood Pressure 180/65 H 182/80 H [Left Brachial artery] Blood Pressure 184/89 H [Sitting] Blood Pressure 180/65 H [Supine] O2 Saturation 94 94 04/02/21 04/02/21 04/02/21 00:00 00:21 03:31 Temperature 37.3 C 37.3 C Heart Rate [ 90 90 Brachial] Heart Rate [ Sitting] Heart Rate [ Supine] Respiratory 17 17 Rate Blood Pressure 195/87 H 182/87 H [Left Brachial artery] Blood Pressure [Sitting] Blood Pressure [Supine] O2 Saturation 93 96 04/02/21 04/02/21 03:47 07:50 Temperature 36.8 C Heart Rate [ 79 Brachial] Heart Rate [ Sitting] Heart Rate [ Supine] Respiratory 18 Rate Blood Pressure 184/74 H 183/71 H [Left Brachial artery] Blood Pressure [Sitting] Blood Pressure [Supine] O2 Saturation 93 Oxygen O2 Source Room air I&O (Last 24 Hrs): Intake and Output Totals x24h 03/31/21 04/01/21 04/02/21 23:59 23:59 23:59 Intake Total 100 2778.571 480 Output Total 200 1230 500 Balance -100 1548.571 -20 General: Alert HEENT: Mucous membr. moist/pink Neck: Supple Neuro: Alert, Other (Right hand 0/5, right foot 1/5, right facial droop persi sts) Cardiovascular: Regular rate, No murmurs Respiratory: No respiratory distress, Breath sounds nml Abdomen: Normal bowel sounds, Soft Extremities: No clubbing, No edema - Results Results: Laboratory Results WBC 9.2 x10^3/uL (4.8-10.8) 04/02/21 05:17 RBC 3.79 10^6/uL (4.20-5.40) L 04/02/21 05:17 Hgb 12.3 g/dL (12.0-16.0) 04/02/21 05:17 Hct 35.9 % (37.0-47.0) L 04/02/21 05:17 MCV 94.7 fL (81.0-99.0) 04/02/21 05:17 MCH 32.5 pg (27.0-31.0) H 04/02/21 05:17 MCHC 34.3 g/dL (32.0-36.0) 04/02/21 05:17 RDW 13.6 % (12.0-15.0) 04/02/21 05:17 Plt Count 167 10^3/uL (130-450) 04/02/21 05:17 MPV 10.9 fL (7.9-10.8) H 04/02/21 05:17 Neut # (Auto) 8.8 10^3/uL (1.5-6.6) H 04/01/21 07:56 Lymph # (Auto) 1.2 10^3/uL (1.5-3.5) L 04/01/21 07:56 Tripp # (Auto) 0.7 10^3/uL (0.0-1.0) 04/01/21 07:56 Eos # (Auto) 0.1 10^3/uL (0.0-0.7) 04/01/21 07:56 Baso # (Auto) 0.0 10^3/uL (0.0-0.1) 04/01/21 07:56 Absolute Nucleated RBC 0.00 x10^3/uL 04/01/21 07:56 Nucleated RBC % 0.0 /100WBC 04/01/21 07:56 PT 11.3 secs (9.9-12.6) 03/31/21 11:51 INR 1.0 (0.8-1.2) 03/31/21 11:51 Sodium 136 mmol/L (135-145) 04/02/21 05:17 Potassium 3.5 mmol/L (3.5-5.0) 04/02/21 05:17 Chloride 104 mmol/L (101-111) 04/02/21 05:17 Carbon Dioxide 23 mmol/L (21-32) 04/02/21 05:17 Anion Gap 9.0 (6-13) 04/02/21 05:17 BUN 13 mg/dL (6-20) 04/02/21 05:17 Creatinine 0.6 mg/dL (0.4-1.0) 04/02/21 05:17 Estimated GFR (MDRD) 95 (>89) 04/02/21 05:17 Glucose 142 mg/dL (70-100) H 04/02/21 05:17 Calcium 8.1 mg/dL (8.5-10.3) L 04/02/21 05:17 Total Bilirubin 0.9 mg/dL (0.2-1.0) 03/31/21 04:25 AST 23 IU/L (10-42) 03/31/21 04:25 ALT 19 IU/L (10-60) 03/31/21 04:25 Alkaline Phosphatase 34 IU/L (42-121) L 03/31/21 04:25 Troponin I High Sens 8.1 ng/L (2.3-14.8) 03/31/21 16:26 Total Protein 6.9 g/dL (6.7-8.2) 03/31/21 04:25 Albumin 4.0 g/dL (3.2-5.5) 03/31/21 04:25 Globulin 2.9 g/dL (2.1-4.2) 03/31/21 04:25 Albumin/Globulin Ratio 1.4 (1.0-2.2) 03/31/21 04:25 Triglycerides 57 mg/dL (-149) 04/01/21 07:56 Cholesterol 281 mg/dL (-199) H 04/01/21 07:56 LDL Cholesterol, Calc 167 mg/dL (-129) H 04/01/21 07:56 VLDL Cholesterol 11 mg/dL 04/01/21 07:56 HDL Cholesterol 103 mg/dL (60-) 04/01/21 07:56 LDL/HDL Ratio 1.6 (<4.4) 04/01/21 07:56 Cholesterol/HDL Ratio 2.7 (<4.4) 04/01/21 07:56 Lipase 23 U/L (22-51) 03/31/21 04:25 Urine Color YELLOW 03/31/21 04:45 Urine Clarity CLEAR (CLEAR) 03/31/21 04:45 Urine pH 7.0 PH (5.0-7.5) 03/31/21 04:45 Ur Specific [place] 1.010 (1.002-1.030) 03/31/21 04:45 Urine Protein NEGATIVE mg/dL (NEGATIVE) 03/31/21 04:45 Urine Glucose (UA) NEGATIVE mg/dL (NEGATIVE) 03/31/21 04:45 Urine Ketones NEGATIVE mg/dL (NEGATIVE) 03/31/21 04:45 Urine Occult Blood NEGATIVE (NEGATIVE) 03/31/21 04:45 Urine Nitrite NEGATIVE (NEGATIVE) 03/31/21 04:45 Urine Bilirubin NEGATIVE (NEGATIVE) 03/31/21 04:45 Urine Urobilinogen 0.2 (NORMAL) E.U./dL (NORMAL) 03/31/21 04:45 Ur Leukocyte Esterase NEGATIVE (NEGATIVE) 03/31/21 04:45 Urine RBC None Seen /HPF (0-5) 03/31/21 04:45 Urine WBC 0-3 /HPF (0-5) 03/31/21 04:45 Ur Squamous Epith Cells RARE Squamous (<= Few) 03/31/21 04:45 Urine Bacteria None Seen /HPF (None Seen) 03/31/21 04:45 Urine Culture Comments NOT INDICATED 03/31/21 04:45 Nasal Adenovirus (PCR) NOT DETECTED 03/31/21 12:56 Nasal B. parapertussis DNA (PCR) NOT DETECTED 03/31/21 12:56 Nasal Coronavir 229E PCR NOT DETECTED 03/31/21 12:56 Nasal Coronavir HKU1 PCR NOT DETECTED 03/31/21 12:56 Nasal Coronavir NL63 PCR NOT DETECTED 03/31/21 12:56 Nasal Coronavir OC43 PCR NOT DETECTED 03/31/21 12:56 Nasal Enterovir/Rhinovir PCR NOT DETECTED 03/31/21 12:56 Nasal Influenza B PCR NOT DETECTED 03/31/21 12:56 Nasal Influenza A PCR NOT DETECTED 03/31/21 12:56 Nasal Parainfluen 1 PCR NOT DETECTED 03/31/21 12:56 Nasal Parainfluen 2 PCR NOT DETECTED 03/31/21 12:56 Nasal Parainfluen 3 PCR NOT DETECTED 03/31/21 12:56 Nasal Parainfluen 4 PCR NOT DETECTED 03/31/21 12:56 Nasal RSV (PCR) NOT DETECTED 03/31/21 12:56 Nasal B.pertussis DNA PCR NOT DETECTED 03/31/21 12:56 Nasal C.pneumoniae (PCR) NOT DETECTED 03/31/21 12:56 Demetrio Human Metapneumo PCR NOT DETECTED 03/31/21 12:56 Nasal M.pneumoniae (PCR) NOT DETECTED 03/31/21 12:56 Nasal SARS-CoV-2 (PCR) NOT DETECTED 03/31/21 12:56 Gastric Fluid pH 2.0 03/31/21 17:10 Gastric Occult Blood POSITIVE (Negative) A 03/31/21 17:10
[2021-04-02] MEDS: SENNA 8.6 MG TABLET PO SCH (22:28)
[2021-04-03] MEDS: SODIUM CHLORIDE FLUSH 0.9% 10 ML SYRINGE IVP SCH ×3 (00:06→15:44)
[2021-04-03 05:33] LABS: HCT - HEMATOCRIT 37.2 % (37.0-47.0); HGB - HEMOGLOBIN 12.2 g/dL (12.0-16.0); MEAN CORPUSCULAR HEMOGLOBIN 30.7 pg (27.0-31.0); MEAN CORPUSCULAR HGB CONC 32.8 g/dL (32.0-36.0); MEAN CORPUSCULAR VOLUME 93.7 fL (81.0-99.0); MEAN PLATELET VOLUME 10.9 fL (7.9-10.8); RED BLOOD COUNT 3.97 10^6/uL (4.20-5.40); RED CELL DISTRIBUTION WIDTH 13.2 % (12.0-15.0); WHITE BLOOD COUNT 10.6 x10^3/uL (4.8-10.8)
[2021-04-03 05:41] LABS: CALCIUM 8.3 mg/dL (8.5-10.3); CREATININE 0.6 mg/dL (0.4-1.0); POTASSIUM 3.1 mmol/L (3.5-5.0)
[2021-04-03] MEDS: SUCRALFATE 1 GM/10 ML UDC PO SCH ×4 (06:10→20:54)
[2021-04-03] MEDS: ONDANSETRON ODT 4 MG TABLET TL SCH ×3 (06:10→15:43)
[2021-04-03] MEDS: PANTOPRAZOLE 40 MG TABLET PO SCH ×2 (06:10→15:43)
[2021-04-03] MEDS ORDERED: BISACODYL 10 MG SUPP PR ONE (07:42)
[2021-04-03] MEDS: LIDOCAINE PATCH 5% TOP PRN (09:08)
[2021-04-03] MEDS: carvediloL 3.125 MG TABLET PO SCH ×2 (09:08→20:54)
[2021-04-03] MEDS: DOCUSATE SODIUM 250 MG CAPSULE PO SCH (09:09)
[2021-04-03] MEDS: SENNA 8.6 MG TABLET PO SCH (09:09)
[2021-04-03] MEDS: polyethylene glycoL 3350 17 GM PACKET PO SCH (09:09)
--- NOTE | 2021-04-03 09:25 | Discharge Plan ---
Discharge Plan Problem Reviewed?: Yes Disposition: 02 Transfer Acute Care Hosp Condition: Serious Diet: Cardiac (Pureed food, nectar thick liquids, 2gm sodium diet) Activity Restrictions: Activity as Tolerated Shower Restrictions: No Health Concerns: Patient was diagnosed with a stroke at the time of admission. She is needing an altered diet: Pured food and nectar thick liquids. She is being transferred to inpatient stroke rehab to participate in physical therapy, occupational therapy and speech therapy. She presented with incessant nausea and vomiting which started before aspirin and Plavix were given in the ER. It was heme positive and coffee grounds were witnessed. General analysis consultant did not advise undergoing EGD but to treat empirically for a stress ulcer. She is on Protonix and sucralfate liquid. Her hemoglobin was stable and she did not need transfusions. The daily aspirin, for managing her stroke, needed to be stopped however. The recommendation from Gen. Surgery is to avoid Aspirin and NSAIDs for 3 more weeks (a total of 1 month). Plan of Treatment: As above. Care Goals: Improvement in symptoms and stabilization are the goals. Assessment: The patient understands and is agreeable with the plan. No Smoking: If you smoke, Please STOP! Call for help. Follow-up with: HAMILTON WALKER MD [Primary Care Provider] -
[2021-04-03 10:23] LABS: B. PARAPERTUSSIS- RESP PCR PAN NOT DETECTED; B. PERTUSSIS- RESP PCR PANEL NOT DETECTED; C. PNEUMONIAE- RESP PCR PANEL NOT DETECTED; CORONAVIRUS 229E-RESP PCR NOT DETECTED; CORONAVIRUS HKU1-RESP PCR NOT DETECTED; CORONAVIRUS NL63-RESP PCR NOT DETECTED; CORONAVIRUS OC43-RESP PCR NOT DETECTED; HUMAN METAPNEUMOVIRUS NOT DETECTED; INFLUENZA A- RESP PCR PANEL NOT DETECTED; INFLUENZA B - RESP PCR PANEL NOT DETECTED; M. PNEUMONIAE- RESP PCR PANEL NOT DETECTED; PARAINFLUENZA VIRUS 1 NOT DETECTED; PARAINFLUENZA VIRUS 2 NOT DETECTED; PARAINFLUENZA VIRUS 3 NOT DETECTED; PARAINFLUENZA VIRUS 4 NOT DETECTED; RHINOVIRUS/ENTEROVIRUS NOT DETECTED; RSV- RESP PCR PANEL NOT DETECTED; SARS-CoV-2 -RESP PCR PANEL NOT DETECTED
[2021-04-03] MEDS: POTASSIUM CHLOR 10 MEQ/100 ML 10 MEQ/100 ML BAG IV SCH ×4 (11:32→15:01)
--- NOTE | 2021-04-03 15:15 | PROVIDER PROGRESS NOTE ---
Assessment/Plan - Problem List (1) Cerebrovascular accident (CVA) Qualifiers: CVA mechanism: unspecified Qualified Code(s): I63.9 - Cerebral infarction, unspecified Assessment/Plan: Worked with PT and sat in chair for 1 hour. Fed herself independently with left hand. Tolerating diet with nectar thick consistency. Plan: Transfer to inpatient rehab hopefully 04/04 for PT/ OT/ ST Start Statin therapy Continue tele monitoring to rule out a-fib. No history or any observed on this admission. Will possibly restart daily aspirin soon, if ulcer sx have subsided and if Hgb does not drop significantly. Nausea persists today. Will not plan on dual anti- plt agents with Plavix plus ASA, due to GI bleed, only baby aspirin. (2) UGI bleed Assessment/Plan: Admission emesis had witnessed coffee ground appearance and tested positive for heme. History of GERD and taking daily pepcid OTC. Stress ulcer suspected. Gen. surgeon consulted and did not recommend EGD and to treat empirically. Am H&H improved 12.2/ 37.2. Accepting MD at in rehab requested repeat H&H prior to transfer. Plan: Zofran Sublingual added AC scheduled to decrease nausea. Protonix PO started. Continue Sucralfate liquid qid. Continue to follow H/H daily or more often if it is dropping. Continue to hold anti-plt agents until nausea subsides. (3) N&V (nausea and vomiting) Assessment/Plan: Tolerating puree diet with nectar thick consistently. Nausea persists but appetite is improved and she is able to eat approximately 50% of meals. Plan: Continue with Zofran sublingual scheduled AC. Continue with anti-emetics prn. (4) HTN (hypertension) Assessment/Plan: No history of HTN. Sbp elevated on admission to >200. After 2 days of post CVA permissive HTN, Cloidine patch was added. Sbp ranges 150-170s. Plan: Continue to with Clonidine patch for HTN. Coreg po added today and was tolerated well. Will continue to monitor BP and adjust medications as needed. If BP continues to be elevated, consider increasing Coreg. (5) Hypokalemia Assessment/Plan: Morning potassium 3.1. Possibly due to poor diet. Plan: Replaced with 40mEq of KCL IVPB vs PO to prevent further nausea, will recheck potassium in am. (6) Chronic low back pain Assessment/Plan: Pt. has chronic lower back pain with hx of L4-L5 fusion. MRI of the spine showed spinal stenosis and disc bulge at L2-3 and L3-4. CT of the spine showed degenerative disc disease. Her son described that she uses Ultram at home and has needed Fentanyl Patches to treat pain in the past. Plan: Lidocaine patch added for pain relief and to help increase activity during PT. Continue to administer Ultram prn back pain. (7) Multiple thyroid nodules Assessment/Plan: CTA of neck upon admission found thyroid nodules measuring 0.9cm on right lobe and 1.4cm on posterior left lobe. TSH 3.47. Plan: Further workup and management outpatient. (8) Hx of hyperlipidemia Assessment/Plan: No prior statin use. During admission total cholesterol 281, LDL 167, and HDL 103. Plan: Start statin therapy. - Current Meds Current Meds: Current Medications Generic Name Dose Route Start Last Admin Trade Name Freq PRN Reason Stop Dose Admin Carvedilol 3.125 mg 04/03/21 09:00 04/03/21 09:08 Carvedilol 3.125 Mg Tablet PO 3.125 mg BID ALVARO Administration Clonidine HCl 1 patch 04/02/21 11:00 04/02/21 10:58 Clonidine 0.1 Mg Patch TOP 1 patch Q7D ALVARO Administration Docusate Sodium 250 - 500 mg 04/03/21 09:00 04/03/21 09:09 Docusate Sodium 250 Mg Capsule PO 250 mg DAILY ALVARO Administration Lidocaine 1 patch 04/03/21 08:52 04/03/21 09:08 Lidocaine Patch 5% TOP 1 patch DAILY PRN Administration PAIN Metoclopramide HCl 10 mg 03/31/21 17:05 04/02/21 03:37 Metoclopramide 10 Mg/2 Ml Vial IVP 10 mg Q6H PRN Administration Nausea / Vomiting Ondansetron HCl 4 mg 03/31/21 13:01 04/02/21 08:14 Ondansetron 4 Mg/2 Ml Vial IVP 4 mg Q6HR PRN Administration Nausea / Vomiting Ondansetron HCl 4 mg 04/02/21 11:00 04/03/21 11:32 Ondansetron Odt 4 Mg Tablet TL 4 mg AC ALVARO Administration Pantoprazole Sodium 40 mg 04/02/21 08:00 04/03/21 06:10 Pantoprazole 40 Mg Tablet PO 40 mg BIDAC ALVARO Administration Polyethylene Glycol 17 gm 03/31/21 21:00 04/03/21 09:09 Polyethylene Glycol 3350 17 Gm Packet PO 17 gm DAILY ALVARO Administration Senna 8.6 - 17.2 mg 04/02/21 21:00 04/03/21 09:09 Senna 8.6 Mg Tablet PO 8.6 mg DAILY ALVARO Administration Sodium Chloride 10 ml 03/31/21 13:01 03/31/21 17:22 Sodium Chloride Flush 0.9% 10 Ml Syringe IVP 20 ml PRN PRN Administration NEEDED PER PROVIDER ORDERS Sodium Chloride 10 ml 03/31/21 17:00 04/03/21 08:52 Sodium Chloride Flush 0.9% 10 Ml Syringe IVP 10 ml 0100,0900,1700 ALVARO Administration Sucralfate 1 gm 04/01/21 16:00 04/03/21 11:32 Sucralfate 1 Gm/10 Ml Udc PO Not Given 0700,1100,1600,2200 ALVARO Tramadol HCl 50 mg 03/31/21 23:49 04/02/21 23:55 Tramadol 50 Mg Tablet PO 50 mg Q6H PRN Administration PAIN - Lab Result Fish Bone Diagrams: 04/03/21 05:00 04/03/21 05:00 Subjective - Subjective Patient Reports: Resting Comfortably, No Complaints Nursing Reports: Other (RN reports able to eat breakfast using left hand) Objective Vital Signs: Vital Signs - 24 hr 04/02/21 04/02/21 04/03/21 16:23 20:32 00:30 Temperature 37.2 C 37.7 C 36.6 C Heart Rate [ 86 79 88 Brachial] Respiratory 20 19 13 Rate Blood Pressure 183/74 H 178/77 H 178/86 H [Left Brachial artery] Blood Pressure [Right Brachial artery] O2 Saturation 97 99 93 04/03/21 04/03/21 04/03/21 05:00 07:41 09:08 Temperature 36.9 C 36.8 C Heart Rate [ 82 74 86 Brachial] Respiratory 18 17 Rate Blood Pressure 176/89 H 160/76 H [Left Brachial artery] Blood Pressure 161/60 H [Right Brachial artery] O2 Saturation 95 96 04/03/21 11:23 Temperature 37.2 C Heart Rate [ 80 Brachial] Respiratory 19 Rate Blood Pressure [Left Brachial artery] Blood Pressure 175/69 H [Right Brachial artery] O2 Saturation 96 Oxygen O2 Source Room air I&O (Last 24 Hrs): Intake and Output Totals x24h 04/01/21 04/02/21 04/03/21 23:59 23:59 23:59 Intake Total 2778.571 2108 520.0 Output Total 1230 1000 500 Balance 6239.957 3690 20.0 - Results Results: Laboratory Results WBC 10.6 x10^3/uL (4.8-10.8) 04/03/21 05:00 RBC 3.97 10^6/uL (4.20-5.40) L 04/03/21 05:00 Hgb 12.2 g/dL (12.0-16.0) 04/03/21 05:00 Hct 37.2 % (37.0-47.0) 04/03/21 05:00 MCV 93.7 fL (81.0-99.0) 04/03/21 05:00 MCH 30.7 pg (27.0-31.0) 04/03/21 05:00 MCHC 32.8 g/dL (32.0-36.0) 04/03/21 05:00 RDW 13.2 % (12.0-15.0) 04/03/21 05:00 Plt Count 160 10^3/uL (130-450) 04/03/21 05:00 MPV 10.9 fL (7.9-10.8) H 04/03/21 05:00 Neut # (Auto) 8.8 10^3/uL (1.5-6.6) H 04/01/21 07:56 Lymph # (Auto) 1.2 10^3/uL (1.5-3.5) L 04/01/21 07:56 [place] # (Auto) 0.7 10^3/uL (0.0-1.0) 04/01/21 07:56 Eos # (Auto) 0.1 10^3/uL (0.0-0.7) 04/01/21 07:56 Baso # (Auto) 0.0 10^3/uL (0.0-0.1) 04/01/21 07:56 Absolute Nucleated RBC 0.00 x10^3/uL 04/01/21 07:56 Nucleated RBC % 0.0 /100WBC 04/01/21 07:56 PT 11.3 secs (9.9-12.6) 03/31/21 11:51 INR 1.0 (0.8-1.2) 03/31/21 11:51 Sodium 134 mmol/L (135-145) L 04/03/21 05:00 Potassium 3.1 mmol/L (3.5-5.0) L 04/03/21 05:00 Chloride 98 mmol/L (101-111) L 04/03/21 05:00 Carbon Dioxide 25 mmol/L (21-32) 04/03/21 05:00 Anion Gap 11.0 (6-13) 04/03/21 05:00 BUN 15 mg/dL (6-20) 04/03/21 05:00 Creatinine 0.6 mg/dL (0.4-1.0) 04/03/21 05:00 Estimated GFR (MDRD) 95 (>89) 04/03/21 05:00 Glucose 112 mg/dL (70-100) H 04/03/21 05:00 Calcium 8.3 mg/dL (8.5-10.3) L 04/03/21 05:00 Total Bilirubin 0.9 mg/dL (0.2-1.0) 03/31/21 04:25 AST 23 IU/L (10-42) 03/31/21 04:25 ALT 19 IU/L (10-60) 03/31/21 04:25 Alkaline Phosphatase 34 IU/L (42-121) L 03/31/21 04:25 Troponin I High Sens 8.1 ng/L (2.3-14.8) 03/31/21 16:26 Total Protein 6.9 g/dL (6.7-8.2) 03/31/21 04:25 Albumin 4.0 g/dL (3.2-5.5) 03/31/21 04:25 Globulin 2.9 g/dL (2.1-4.2) 03/31/21 04:25 Albumin/Globulin Ratio 1.4 (1.0-2.2) 03/31/21 04:25 Triglycerides 57 mg/dL (-149) 04/01/21 07:56 Cholesterol 281 mg/dL (-199) H 04/01/21 07:56 LDL Cholesterol, Calc 167 mg/dL (-129) H 04/01/21 07:56 VLDL Cholesterol 11 mg/dL 04/01/21 07:56 HDL Cholesterol 103 mg/dL (60-) 04/01/21 07:56 LDL/HDL Ratio 1.6 (<4.4) 04/01/21 07:56 Cholesterol/HDL Ratio 2.7 (<4.4) 04/01/21 07:56 Lipase 23 U/L (22-51) 03/31/21 04:25 TSH 3.47 uIU/mL (0.34-5.60) 04/03/21 05:00 Urine Color YELLOW 03/31/21 04:45 Urine Clarity CLEAR (CLEAR) 03/31/21 04:45 Urine pH 7.0 PH (5.0-7.5) 03/31/21 04:45 Ur Specific [place] 1.010 (1.002-1.030) 03/31/21 04:45 Urine Protein NEGATIVE mg/dL (NEGATIVE) 03/31/21 04:45 Urine Glucose (UA) NEGATIVE mg/dL (NEGATIVE) 03/31/21 04:45 Urine Ketones NEGATIVE mg/dL (NEGATIVE) 03/31/21 04:45 Urine Occult Blood NEGATIVE (NEGATIVE) 03/31/21 04:45 Urine Nitrite NEGATIVE (NEGATIVE) 03/31/21 04:45 Urine Bilirubin NEGATIVE (NEGATIVE) 03/31/21 04:45 Urine Urobilinogen 0.2 (NORMAL) E.U./dL (NORMAL) 03/31/21 04:45 Ur Leukocyte Esterase NEGATIVE (NEGATIVE) 03/31/21 04:45 Urine RBC None Seen /HPF (0-5) 03/31/21 04:45 Urine WBC 0-3 /HPF (0-5) 03/31/21 04:45 Ur Squamous Epith Cells RARE Squamous (<= Few) 03/31/21 04:45 Urine Bacteria None Seen /HPF (None Seen) 03/31/21 04:45 Urine Culture Comments NOT INDICATED 03/31/21 04:45 Nasal Adenovirus (PCR) NOT DETECTED 04/03/21 09:12 Nasal B. parapertussis DNA (PCR) NOT DETECTED 04/03/21 09:12 Nasal Coronavir 229E PCR NOT DETECTED 04/03/21 09:12 Nasal Coronavir HKU1 PCR NOT DETECTED 04/03/21 09:12 Nasal Coronavir NL63 PCR NOT DETECTED 04/03/21 09:12 Nasal Coronavir OC43 PCR NOT DETECTED 04/03/21 09:12 Nasal Enterovir/Rhinovir PCR NOT DETECTED 04/03/21 09:12 Nasal Influenza B PCR NOT DETECTED 04/03/21 09:12 Nasal Influenza A PCR NOT DETECTED 04/03/21 09:12 Nasal Parainfluen 1 PCR NOT DETECTED 04/03/21 09:12 Nasal Parainfluen 2 PCR NOT DETECTED 04/03/21 09:12 Nasal Parainfluen 3 PCR NOT DETECTED 04/03/21 09:12 Nasal Parainfluen 4 PCR NOT DETECTED 04/03/21 09:12 Nasal RSV (PCR) NOT DETECTED 04/03/21 09:12 Nasal B.pertussis DNA PCR NOT DETECTED 04/03/21 09:12 Nasal C.pneumoniae (PCR) NOT DETECTED 04/03/21 09:12 Demetrio Human Metapneumo PCR NOT DETECTED 04/03/21 09:12 Nasal M.pneumoniae (PCR) NOT DETECTED 04/03/21 09:12 Nasal SARS-CoV-2 (PCR) NOT DETECTED 04/03/21 09:12 Gastric Fluid pH 2.0 03/31/21 17:10 Gastric Occult Blood POSITIVE (Negative) A 03/31/21 17:10
[2021-04-03] MEDS ORDERED: ATORVASTATIN 40 MG TABLET PO SCH (21:00)
[2021-04-03] MEDS ORDERED: ESTROGENS, CONJUGATED CREAM 30 GM TUBE VG SCH (21:00)
[2021-04-03] MEDS: ONDANSETRON 4 MG/2 ML VIAL IVP PRN (21:27)
[2021-04-04] MEDS: traMADol 50 MG TABLET PO PRN (00:17)
[2021-04-04] MEDS: METOCLOPRAMIDE 10 MG/2 ML VIAL IVP PRN (00:17)
[2021-04-04] MEDS: SODIUM CHLORIDE FLUSH 0.9% 10 ML SYRINGE IVP SCH ×2 (00:30→08:01)
[2021-04-04] MEDS: SODIUM CHLORIDE FLUSH 0.9% 10 ML SYRINGE IVP PRN (00:30)
[2021-04-04] MEDS: SUCRALFATE 1 GM/10 ML UDC PO SCH ×2 (06:21→11:35)
[2021-04-04] MEDS: ONDANSETRON ODT 4 MG TABLET TL SCH ×2 (06:21→11:35)
[2021-04-04] MEDS: PANTOPRAZOLE 40 MG TABLET PO SCH (06:21)
[2021-04-04] MEDS: carvediloL 3.125 MG TABLET PO SCH (08:01)
[2021-04-04] MEDS: DOCUSATE SODIUM 250 MG CAPSULE PO SCH (08:01)
[2021-04-04] MEDS: polyethylene glycoL 3350 17 GM PACKET PO SCH (08:01)
[2021-04-04] MEDS: SENNA 8.6 MG TABLET PO SCH (08:01)
[2021-04-04 09:03] LABS: BASOPHILS # (AUTO) 0.1 10^3/uL (0.0-0.1); BASOPHILS % (AUTO) 0.8 %; EOSINOPHILS # (AUTO) 0.5 10^3/uL (0.0-0.7); HCT - HEMATOCRIT 35.6 % (37.0-47.0); LYMPHOCYTES # (AUTO) 1.6 10^3/uL (1.5-3.5); LYMPHOCYTES % (AUTO) 19.4 %; MEAN CORPUSCULAR HEMOGLOBIN 31.7 pg (27.0-31.0); MEAN CORPUSCULAR HGB CONC 33.7 g/dL (32.0-36.0); MEAN CORPUSCULAR VOLUME 94.2 fL (81.0-99.0); MEAN PLATELET VOLUME 10.7 fL (7.9-10.8); MONOCYTES # (AUTO) 0.7 10^3/uL (0.0-1.0); MONOCYTES % (AUTO) 8.3 %; NEUTROPHILS # (AUTO) 5.4 10^3/uL (1.5-6.6); NEUTROPHILS % (AUTO) 65.1 %; PLT - PLATELET COUNT 150 10^3/uL (130-450); RED BLOOD COUNT 3.78 10^6/uL (4.20-5.40); RED CELL DISTRIBUTION WIDTH 13.3 % (12.0-15.0); WHITE BLOOD COUNT 8.3 x10^3/uL (4.8-10.8)
[2021-04-04] MEDS: LIDOCAINE PATCH 5% TOP PRN (10:24)
[2021-04-04 11:35] VITALS: BP 163/72
--- NOTE | 2021-04-04 12:03 | DISCHARGE SUMMARY ---
Discharge Summary Admit Date: 03/31/21 Discharge Date: 04/04/21 Discharging Provider: Dr Ivania Jean Primary Care Provider: Dr Nelly Sun Code Status: Do Not Attempt Resuscitation Condition at Discharge: Serious Discharge Disposition: 02 Transfer Acute Care Hosp Discharge Facility Name: [facility] - DIAGNOSES Admission Diagnoses: 1) Stroke 2) N/V 3) Hx of spinal stenosis 4) Hx of hyperlipidemia 5) Hx of DJD - HPI History of Present Illness: This is an 85-year-old white female who has a history of spinal stenosis and chronic low back pain. She lives alone, is a , is independent. She awoke in the middle the night noticing that her right leg felt numb and slightly on the left as well and possibly right leg weaker than the left. She presented to the ED with these complaints and was waiting several hours to undergo MRI of the lumbosacral spine. MRI was done and showed degenerative joint disease, and spinal stenosis was confirmed. Upon returning from imaging dept, she was noted to have vomiting and a right facial droop and there was right arm weakness compared to her left. She then underwent STAT CT of the head with stroke protocol as well as CTA of the head and neck. There were no vascular occlusion seen on imaging and there was no bleeding, mass-effect or stroke seen on the CT scan. The ED provider reached out to the neurologist in telestroke. It was decided she was not a TPA candidate because the symptoms of the right greater than left leg weakness and numbness could have been the beginning of her stroke symptoms, which had started greater than 12 hours previously. She recveived aspirin and Plavix in the ER. Her blood pressure was 207 in the ED. The patient is being admitted for stroke, management of nausea and vomiting and h ypertension. We discussed the patient's code wishes at this time and she wishes to be a DNR. - CONSULTS | PROCEDURES Consultations: Dr Manuel Neumann, Gen Surgery - HOSPITAL COURSE Hospital Course: (1) Cerebrovascular accident (CVA) She underwent a brain MRI the following day which showed a 3cm x 1.5 cm subacute stroke of the L Scott radiata/basal ganglia. There was also volume loss and small vessel ischemic disease reported. Swallow eval was done and she needs nectar thick liquids and diet to be pureed. Echo was done and showed no intra- cardiac clot or shunt and normal LVEF. There was no Afib by telemetry seen to date. Her lipid panel shows LDL of 167, therefore we started Lipitor qhs. Her anti-platelet meds are unfortunately on hold due to active GI bleeding (see #2 and #3 below). PT and OT evaluations were done and she qualified for Inpt rehab and was transferred to [facility] on 04/04/21. (2) N&V (nausea and vomiting) She presented with incessant nausea and vomiting which started before aspirin and Plavix were given in the ER. It was heme positive and later coffee ground emesis was witnessed. She needed iv anti-emetics prn and needed Zofran TL scheduled before each meal. She is able to consume 50% of her meals. (3) UGI bleed Her gastric liquid that she vomited on the night of admission, tested (+) for heme, and then she had witnessed coffee ground emesis. She has a presumed stress ulcer. General information consultant did not advise undergoing EGD but to treat empirically for a stress ulcer. She was put on Protonix b.i.d., first iv then po, and on Sucralfate liquid. Her hemoglobin was stable (at 12 daily) and she did not need transfusions. The daily aspirin, for managing her stroke, needed to be stopped however. The recommendation from Gen. Surgery is to avoid Aspirin and NSAIDs for 3 more weeks (a total of 1 month). (4) Hx of gastroesophageal reflux (GERD) The son gave additional Hx of her having significant GERD and that she usually takes OTC Pepcid b.i.d. (5) HTN (hypertension) She had no prior Hx of HTN and permissive hypertension up to 170 systolic was allowed for 1-2 days. Her BP was better on Day #2, but became very elevated again on Day #3 (180's/100's) and she was started on anti-hypertensive, using topical Clonidine patch, so as not to promote nausea or vomiting. We also added Coreg for BP control. At discharge her BP was 145-160/70's. (6) Chronic low back pain Her son described that she uses Ultram at home and has needed Fentanyl Patches to treat pain in the past. She also has DJD and was on "immuno-suppressants" in the past. Her Ultram dose was resumed here and we added a scheduled Lidocaine patch topically daily over the L-S spine. (7) Hx of hyperlipidemia She carried this diagnosis but was not on cholesterol meds at presentation. Her fasting lipid results show elevated LDL of 167, and we started Lipitor at hs. (8) Multiple thyroid nodules This was a new finding seen on images done at admission and needs further evaluation and management. Her serum TSH was normal. (9) Hypokalemia This was replaced with K riders iv. - ALLERGIES Allergies/Adverse Reactions: Allergies Allergy/AdvReac Type Severity Reaction Status Date / Time Penicillins Allergy Unknown Verified 03/31/21 04:31 - MEDICATIONS Home Medications: Ambulatory Orders Medication Instructions Recorded Confirmed Cyclosporine [Restasis Multidose] 1 drops EACHEYE BID 03/31/21 03/31/21 traMADol [Ultram] 50 mg PO BID PRN 03/31/21 03/31/21 Lidocaine Patch 5% [Lidoderm Patch] 1 patch TOP DAILY PRN #0 patch 04/03/21 Metoclopramide Inj [Reglan Inj] 10 mg IVP Q6H PRN #0 vial 04/03/21 Ondansetron Odt [Zofran Odt] 4 mg TL AC #0 tablet 04/03/21 Pantoprazole [Protonix] 40 mg PO BIDAC #0 tablet 04/03/21 Simethicone [Mylicon] 80 mg PO 0900,1300,1800,2100 PRN 04/03/21 #0 tablet Sucralfate [Carafate] 1 gm PO 0700,1100,1600,2200 #0 04/03/21 carvediloL [Coreg] 3.125 mg PO BID #0 tablet 04/03/21 cloNIDine 0.1 MG PATCH 1 patch TOP Q7D #0 patch 04/03/21 [[id number]] - PHYSICAL EXAM AT DISCHARGE General Appearance: positive: No acute distress, Alert Eyes Bilateral: positive: Normal inspection, PERRL, EOMI ENT: positive: No signs of dehydration, Other (R facial droop) Neck: positive: Nml inspection, No JVD Respiratory: positive: No respiratory distress, Breath sounds nml Cardiovascular: positive: Regular rate & rhythm, No murmur Abdomen: positive: Non-tender, Nml bowel sounds, No distention Skin: positive: Warm, Dry Extremities: positive: Non-tender, No pedal edema Neurologic/Psychiatric: positive: Oriented x3, Sensation nml, Weakness (Strength is 0/5 of R arm and R leg), Facial droop (Right), Other (Normal speech) - LABS Result Diagrams: 04/04/21 08:50 04/03/21 05:00 - DIAGNOSTIC IMAGING Diagnostic Imaging Results: Final report reviewed - FOLLOW UP Follow Up: This will be determined after her hospital stay at [facility]. - TIME SPENT Time Spent in Discharge (Minutes): 50
[2021-04-04 12:55] LABS: B. PARAPERTUSSIS- RESP PCR PAN NOT DETECTED; B. PERTUSSIS- RESP PCR PANEL NOT DETECTED; C. PNEUMONIAE- RESP PCR PANEL NOT DETECTED; CORONAVIRUS 229E-RESP PCR NOT DETECTED; CORONAVIRUS HKU1-RESP PCR NOT DETECTED; CORONAVIRUS NL63-RESP PCR NOT DETECTED; CORONAVIRUS OC43-RESP PCR NOT DETECTED; HUMAN METAPNEUMOVIRUS NOT DETECTED; INFLUENZA A- RESP PCR PANEL NOT DETECTED; INFLUENZA B - RESP PCR PANEL NOT DETECTED; M. PNEUMONIAE- RESP PCR PANEL NOT DETECTED; PARAINFLUENZA VIRUS 1 NOT DETECTED; PARAINFLUENZA VIRUS 2 NOT DETECTED; PARAINFLUENZA VIRUS 3 NOT DETECTED; PARAINFLUENZA VIRUS 4 NOT DETECTED; RHINOVIRUS/ENTEROVIRUS NOT DETECTED; RSV- RESP PCR PANEL NOT DETECTED; SARS-CoV-2 -RESP PCR PANEL NOT DETECTED
[2021-04-05] MEDS ORDERED: LIDOCAINE PATCH 5% TOP SCH (09:00)
== END 2021-04-04 14:30 | disposition short-term general hospital (02) | DRG 64 ==
LOC: EDUNIT# → ED 03:54 → SUPCPDRO 03:54 → MS2 13:01
PROVIDERS: ADMIT Internal Medicine; ATTEND Internal Medicine
DX: I63.9 Cerebral infarction, unspecified (principal); K27.4 Chronic or unspecified peptic ulcer, site unspecified, with hemorrhage; G81.91 Hemiplegia, unspecified affecting right dominant side; R11.2 Nausea with vomiting, unspecified; R47.1 Dysarthria and anarthria; R47.81 Slurred speech; R29.810 Facial weakness; I10 Essential (primary) hypertension; R29.706 NIHSS score 6; M48.00 Spinal stenosis, site unspecified; E78.5 Hyperlipidemia, unspecified; E04.2 Nontoxic multinodular goiter; G89.29 Other chronic pain; Z66 Do not resuscitate; K21.9 Gastro-esophageal reflux disease without esophagitis; E87.6 Hypokalemia; Z20.822 Contact with and (suspected) exposure to COVID-19
CPT/HCPCS: 36415; 70450; 70496; 70498; 70551; 71045; 72131; 72148; 74176; 80048; 80053; 80061; 81001; 83690; 84443; 84484; 85025; 85027; 85610; 87631; 92522; 92526; 92610; 93005; 93306; 96374; 96375; 97162; 97165; 97530; 99284; 99285; A9270; J0131; J2765; Q0162; Q9967; 0202U; 83721; 87086

== ENCOUNTER 2021-04-04 14:38 | Outpatient (CLI) | payer MEDICARE, OTHER | END 2021-04-04 14:39 | LOC: EMS 14:38 | PROVIDERS: ATTEND Internal Medicine | DX: I69.351 Hemiplegia and hemiparesis following cerebral infarction affecting right dominant side (principal); I10 Essential (primary) hypertension; M48.00 Spinal stenosis, site unspecified; K27.9 Peptic ulcer, site unspecified, unspecified as acute or chronic, without hemorrhage or perforation; Z74.01 Bed confinement status | CPT/HCPCS: A0425; A0429 ==

== ENCOUNTER 2021-08-10 19:45 | Outpatient (CLI) | payer MEDICARE, OTHER ==
--- NOTE | 2021-08-10 21:31 | XRAY Report ---
PROCEDURE: Abdomen 1 View X-Ray INDICATIONS: RECURRENT UTI TECHNIQUE: 1 view of the abdomen were acquired. COMPARISON: CT of abdomen and pelvis dated 03/31/2021 FINDINGS: Surgical changes and devices: Fusion hardware in lower lumbar spine at L4-5 level is seen. Patient is status post bilateral total hip arthroplasty. Surgical clips are seen in gallbladder fossa. Bowel: No pneumoperitoneum. The bowel gas pattern is normal. Soft tissues: No masses; visualized solid organ contours appear normal in size. No suspicious abdom inal calcifications. Bones: No suspicious bony abnormalities. IMPRESSION: No gross renal calcification is seen. No definite ureteral stone is seen. No evidence of bowel obstruction or gross free air. Reviewed by: Javier Gomes MD on 08/10/2021 9:29 PM PST Approved by: Javier Gomes MD on 08/10/2021 9:29 PM PST Station ID: [id number]
== END 2021-08-10 19:46 | disposition home or self-care (01) ==
LOC: DI 19:45
PROVIDERS: ATTEND Internal Medicine
DX: N39.0 Urinary tract infection, site not specified (principal); B96.89 Other specified bacterial agents as the cause of diseases classified elsewhere

== ENCOUNTER 2021-08-10 19:48 | Outpatient (CLI) | payer MEDICARE, OTHER ==
--- NOTE | 2021-08-10 22:45 | Ultrasound Report ---
PROCEDURE: Retroperitoneal INDICATIONS: RECURRENT UTI TECHNIQUE: Real-time scanning was performed of the retroperitoneal organs, with image documentation. COMPARISON: None. FINDINGS: Kidneys: Kidneys are normal in size. Right kidney measures 9.3 cm long; left kidney measures 9.2 cm long. Right renal cortical thickness is 1.3 cm; left renal cortical thickness is 1.2 cm. No solid masses, hydronephrosis, or nephrolithiasis. 1.7 x 1.7 x 2.9 cm simple cyst is seen in lower pole of right kidney. 1.1 x 1.1 x 1.2 cm cyst is seen in upper pole of right kidney. Bladder: Prevoid volume is 197 cc. Patient is unable to void. Bilateral ureteral jets are not visuali zed on this study. There is no gross bladder wall thickening or discrete bladder wall mass. IMPRESSION: 1. Right renal cysts as above. No hydronephrosis or solid appearing urinary bladder. 2. Patient is unable to void. No gross abnormality is seen in urinary bladder wall. Reviewed by: Javier Ann MD on 08/10/2021 10:43 PM PST Approved by: Javier Ann MD on 08/10/2021 10:43 PM PST Station ID: [id number]
== END 2021-08-10 19:49 | disposition home or self-care (01) ==
LOC: DI 19:48
PROVIDERS: ATTEND Internal Medicine
DX: N39.0 Urinary tract infection, site not specified (principal); B96.89 Other specified bacterial agents as the cause of diseases classified elsewhere; N28.1 Cyst of kidney, acquired

== ENCOUNTER 2022-02-18 13:22 | Outpatient (CLI) | payer MEDICARE, OTHER ==
[2022-02-18 14:28] LABS: BILIRUBIN,URINE NEGATIVE (NEGATIVE); GLUCOSE, URINE (UA) NEGATIVE (NEGATIVE); KETONES,URINE (UA) NEGATIVE (NEGATIVE); LEUKOCYTE ESTERASE, URINE LARGE (NEGATIVE); NITRITE,URINE POSITIVE (NEGATIVE); OCCULT BLOOD,URINE NEGATIVE (NEGATIVE); PROTEIN,URINE NEGATIVE (NEGATIVE); UROBILINOGEN,URINE 0.2 (NORMAL) E.U./dL (NORMAL)
[2022-02-18 14:32] LABS: CLARITY,URINE SL. CLOUDY (CLEAR)
[2022-02-18 14:58] LABS: BACTERIA,URINE Many /HPF (None Seen); RBC,URINE 0-5 /HPF (0-5); SQUAMOUS EPITHELIAL CELL,UR FEW Squamous (<= Few)
== END 2022-02-18 13:23 | disposition home or self-care (01) ==
LOC: LAB 13:22
DX: N39.0 Urinary tract infection, site not specified (principal); R11.0 Nausea
CPT/HCPCS: 81001; 87086; 87181

== ENCOUNTER 2022-11-17 08:00 | Outpatient (CLI) | payer MEDICARE, OTHER | END 2022-11-17 23:59 | disposition home or self-care (01) | LOC: LAB.S 08:00 | PROVIDERS: ATTEND Physician Assistant Medical | DX: N39.0 Urinary tract infection, site not specified (principal) | CPT/HCPCS: 87077; 87086; 87181 ==

== ENCOUNTER 2022-11-29 11:23 | Outpatient (CLI) | payer MEDICARE, OTHER ==
[2022-11-29 14:58] LABS: BILIRUBIN,URINE NEGATIVE (NEGATIVE); GLUCOSE, URINE (UA) NEGATIVE (NEGATIVE); KETONES,URINE (UA) NEGATIVE (NEGATIVE); LEUKOCYTE ESTERASE, URINE LARGE (NEGATIVE); NITRITE,URINE POSITIVE (NEGATIVE); OCCULT BLOOD,URINE TRACE-LYSE (NEGATIVE); PROTEIN,URINE NEGATIVE (NEGATIVE); UROBILINOGEN,URINE 0.2 (NORMAL) E.U./dL (NORMAL)
[2022-11-29 15:20] LABS: BACTERIA,URINE Many /HPF (None Seen); CLARITY,URINE HAZY (CLEAR); SQUAMOUS EPITHELIAL CELL,UR FEW Squamous (<= Few); WBC CLUMPS,URINE PRESENT; WBC,URINE >25 /HPF (0-5)
== END 2022-11-29 11:24 | disposition home or self-care (01) ==
LOC: LAB.S 11:23
PROVIDERS: ATTEND Emergency Medicine
DX: N39.0 Urinary tract infection, site not specified (principal)
CPT/HCPCS: 81001; 87077; 87086; 87181

== ENCOUNTER 2022-12-17 08:00 | Outpatient (CLI) | payer MEDICARE, OTHER | END 2022-12-17 23:59 | disposition home or self-care (01) | LOC: LAB 08:00 | PROVIDERS: ATTEND Physician Assistant Medical | DX: N39.0 Urinary tract infection, site not specified (principal) | CPT/HCPCS: 87077; 87086; 87181 ==

== ENCOUNTER 2022-12-29 08:00 | Outpatient (CLI) | payer MEDICARE, OTHER | END 2022-12-29 23:59 | disposition home or self-care (01) | LOC: LAB.N 08:00 | PROVIDERS: ATTEND Registered Nurse | DX: R19.7 Diarrhea, unspecified (principal) | CPT/HCPCS: 87493 ==

== ENCOUNTER 2022-12-29 10:49 | Outpatient (CLI) | payer MEDICARE, OTHER | END 2022-12-29 10:50 | disposition home or self-care (01) | LOC: LAB.S 10:49 | PROVIDERS: ATTEND Registered Nurse | DX: R19.7 Diarrhea, unspecified (principal) ==

== ENCOUNTER 2023-01-19 09:38 | Outpatient (CLI) | payer MEDICARE, OTHER ==
[2023-01-19 14:34] LABS: BASOPHILS # (AUTO) 0.1 10^3/uL (0.0-0.1); EOSINOPHILS # (AUTO) 0.5 10^3/uL (0.0-0.7); HCT - HEMATOCRIT 31.9 % (37.0-47.0); HGB - HEMOGLOBIN 10.7 g/dL (12.0-16.0); LYMPHOCYTES # (AUTO) 1.7 10^3/uL (1.5-3.5); LYMPHOCYTES % (AUTO) 29.5 %; MEAN CORPUSCULAR HEMOGLOBIN 32.1 pg (27.0-31.0); MEAN CORPUSCULAR HGB CONC 33.5 g/dL (32.0-36.0); MEAN CORPUSCULAR VOLUME 95.8 fL (81.0-99.0); MEAN PLATELET VOLUME 11.8 fL (7.9-10.8); MONOCYTES # (AUTO) 0.5 10^3/uL (0.0-1.0); MONOCYTES % (AUTO) 9.2 %; NEUTROPHILS # (AUTO) 2.9 10^3/uL (1.5-6.6); NEUTROPHILS % (AUTO) 51.1 %; PLT - PLATELET COUNT 131 10^3/uL (130-450); RED BLOOD COUNT 3.33 10^6/uL (4.20-5.40); RED CELL DISTRIBUTION WIDTH 12.9 % (12.0-15.0); WHITE BLOOD COUNT 5.6 x10^3/uL (4.8-10.8)
[2023-01-19 14:56] LABS: THYROID STIMULATING HORMONE 3.21 uIU/mL (0.34-5.60)
[2023-01-19 14:57] LABS: ALBUMIN 3.2 g/dL (3.2-5.5); ALBUMIN/GLOBULIN RATIO 1.1 (1.0-2.2); ALKALINE PHOSPHATASE 49 IU/L (42-121); ALT ALANINE AMINOTRANSFERASE 19 IU/L (10-60); AST ASPARTATE AMINOTRANSFERASE 21 IU/L (10-42); BILIRUBIN,TOTAL 0.9 mg/dL (0.2-1.0); BUN - BLOOD UREA NITROGEN 18 mg/dL (6-20); CALCIUM 8.6 mg/dL (8.5-10.3); CARBON DIOXIDE - CO2 27 mmol/L (21-32); CHLORIDE 99 mmol/L (101-111); CHOL/HDL RATIO 1.9 (<4.4); CHOLESTEROL 126 mg/dL; GFR - MDRD 52 (>89); GLUCOSE 104 mg/dL (70-100); HDL CHOLESTEROL 68 mg/dL; LDL CHOLESTEROL,CALCULATED 48 mg/dL; LDL/HDL RATIO 0.7 (<4.4); POTASSIUM 4.2 mmol/L (3.5-5.0); SODIUM 131 mmol/L (135-145); TOTAL PROTEIN 6.2 g/dL (6.7-8.2); TRIGLYCERIDES 51 mg/dL; VLDL CHOLESTEROL 10 mg/dL
== END 2023-01-19 09:39 | disposition home or self-care (01) ==
LOC: LAB.S 09:38
PROVIDERS: ATTEND Registered Nurse
DX: Z79.899 Other long term (current) drug therapy (principal); Z13.220 Encounter for screening for lipoid disorders; Z13.29 Encounter for screening for other suspected endocrine disorder
CPT/HCPCS: 36415; 80053; 80061; 83721; 84443; 85025

== ENCOUNTER 2023-03-02 10:55 | Outpatient (CLI) | payer MEDICARE, OTHER ==
[2023-03-02 15:12] LABS: BILIRUBIN,URINE NEGATIVE (NEGATIVE); GLUCOSE, URINE (UA) NEGATIVE (NEGATIVE); KETONES,URINE (UA) NEGATIVE (NEGATIVE); LEUKOCYTE ESTERASE, URINE LARGE (NEGATIVE); NITRITE,URINE POSITIVE (NEGATIVE); OCCULT BLOOD,URINE TRACE-INTA (NEGATIVE); PROTEIN,URINE NEGATIVE (NEGATIVE); UROBILINOGEN,URINE 0.2 (NORMAL) E.U./dL (NORMAL)
[2023-03-02 15:13] LABS: CLARITY,URINE CLOUDY (CLEAR)
[2023-03-02 15:38] LABS: BACTERIA,URINE Many /HPF (None Seen); RBC,URINE 0-5 /HPF (0-5); SQUAMOUS EPITHELIAL CELL,UR MANY Squamous (<= Few); WBC,URINE >25 /HPF (0-5)
== END 2023-03-02 23:59 | disposition home or self-care (01) ==
LOC: LAB.S 10:55
PROVIDERS: ATTEND Internal Medicine
DX: N39.0 Urinary tract infection, site not specified (principal)
CPT/HCPCS: 81001; 87086

== ENCOUNTER 2023-04-06 08:22 | Outpatient (CLI) | payer MEDICARE, OTHER ==
[2023-04-06 16:40] LABS: BILIRUBIN,URINE NEGATIVE (NEGATIVE); GLUCOSE, URINE (UA) NEGATIVE (NEGATIVE); KETONES,URINE (UA) NEGATIVE (NEGATIVE); LEUKOCYTE ESTERASE, URINE LARGE (NEGATIVE); NITRITE,URINE NEGATIVE (NEGATIVE); OCCULT BLOOD,URINE NEGATIVE (NEGATIVE); PROTEIN,URINE NEGATIVE (NEGATIVE); UROBILINOGEN,URINE 0.2 (NORMAL) E.U./dL (NORMAL)
[2023-04-06 16:42] LABS: CLARITY,URINE CLOUDY (CLEAR)
[2023-04-06 17:18] LABS: RBC,URINE 0-5 /HPF (0-5); SQUAMOUS EPITHELIAL CELL,UR MANY Squamous (<= Few); WBC,URINE >25 /HPF (0-5)
[2023-04-06 17:19] LABS: BACTERIA,URINE Many /HPF (None Seen); EPITHELIAL CELLS,UR MOD Transitional /HPF (<= Few)
== END 2023-04-06 23:59 | disposition home or self-care (01) ==
LOC: LAB 08:22
PROVIDERS: ATTEND Internal Medicine
DX: N39.0 Urinary tract infection, site not specified (principal)
CPT/HCPCS: 81001; 87086

== ENCOUNTER 2023-05-28 14:57 | Outpatient (CLI) | payer MEDICARE, OTHER | END 2023-05-28 14:58 | disposition critical access hospital (66) | LOC: EMS 14:57 | DX: U07.1 COVID-19 (principal); R11.2 Nausea with vomiting, unspecified | CPT/HCPCS: A0425; A0427 ==

== ENCOUNTER 2023-05-28 15:23 | Emergency (ER) | payer MEDICARE, OTHER ==
[2023-05-28] MEDS ORDERED: SODIUM CHLORIDE 0.9% 1,000 ML IV STA (15:33)
[2023-05-28] MEDS ORDERED: METOCLOPRAMIDE 10 MG/2 ML VIAL IVP STA (15:33)
[2023-05-28] MEDS ORDERED: NIRMATRELVIR/RITONAVIR PREPACK PO STA (15:33)
--- NOTE | 2023-05-28 15:36 | ED Physician Documentation ---
History of Present Illness - Stated complaint Stated Complaint: N/V C+ - History obtained from History obtained from: Patient, EMS - Additonal information Additional information: 87-year-old woman with chronic nausea, COPD, chronic back pain, history of stroke, rheumatoid arthritis. She presents from [facility]. She got sick last night with headache, body aches, and increased over baseline nausea and vomiting. She tested positive for COVID. She took her own Zofran at home which was unhelpful for her nausea and she was throwing up. She denies abdominal pain. Her only pain is the headache. Received 4 mg of IM Zofran from EMS prior to arrival that has not yet been helpful. PD PAST MEDICAL HISTORY - Past Medical History Cardiovascular: None Respiratory: None Neuro: CVA Endocrine/Autoimmune: None GI: Other (She had similar nausea and vomiting when she had gallstones and needed her gallbladder removed) : None Psych: None Musculoskeletal: None Derm: None - Past Surgical History General: Cholecystectomy Ortho: Hip replacement, Spine surgery - Present Medications Home Medications: Ambulatory Orders Medication Instructions Recorded Confirmed Atorvastatin Calcium 40 mg PO HS 05/28/23 05/28/23 Azelastine HCl 2 spray NS BID 05/28/23 05/28/23 Estradiol [Estrace] 1 applic VG DAILY 05/28/23 05/28/23 Famotidine [Acid-Pep] 20 mg PO DAILY 05/28/23 05/28/23 Fluticasone 44 Mcg [Flovent] 1 puffs INH DAILY 05/28/23 05/28/23 Fluticasone [Flonase] 1 sprays FRANCHESCA DAILY 05/28/23 05/28/23 Losartan [Cozaar] 50 mg PO DAILY 05/28/23 05/28/23 Methenamine Hippurate [Hiprex] 1 tab PO BID 05/28/23 05/28/23 Metoclopramide [Reglan] 10 mg PO Q6H PRN #20 tablet 05/28/23 Mirtazapine 7.5 mg PO HS 05/28/23 05/28/23 Ondansetron HCl 4 mg PO Q6HR PRN 05/28/23 05/28/23 carvediloL [Coreg] 12.5 mg PO BID 05/28/23 05/28/23 traMADol [Ultram] 25 mg PO Q4-6H PRN 05/28/23 05/28/23 - Allergies Allergies/Adverse Reactions: Allergies Allergy/AdvReac Type Severity Reaction Status Date / Time Penicillins Allergy Unknown Verified 05/28/23 15:37 - Social History Smoking Status: Never smoker PD ED PE NORMAL - Vitals Vital signs reviewed: Yes - General General: Alert and oriented X 3, No acute distress - HEENT HEENT: PERRL, EOMI - Neck Neck: Supple, no meningeal sign, No bony TTP - Cardiac Cardiac: RRR, No murmur - Respiratory Respiratory: No respiratory distress, Clear bilaterally - Abdomen Abdomen: Soft, Non tender - Extremities Extremities: No edema, No calf tenderness / cord - Neuro Neuro: Alert and oriented X 3, Normal speech Results - Vitals Vitals: Vital Signs - 24 hr 05/28/23 15:35 Temperature 37.3 C Heart Rate 80 Respiratory 17 Rate Blood Pressure 162/75 H O2 Saturation 94 Oxygen O2 Source Room air - Labs Labs: Laboratory Tests 05/28/23 05/28/23 15:45 16:03 WBC 8.6 RBC 3.52 L Hgb 11.5 L Hct 33.8 L MCV 96.0 MCH 32.7 H MCHC 34.0 RDW 13.0 Plt Count 129 L MPV 11.2 H Neut # (Auto) 6.9 H Lymph # (Auto) 0.7 L Miner # (Auto) 0.8 Eos # (Auto) 0.1 Baso # (Auto) 0.1 Absolute Nucleated RBC 0.00 Nucleated RBC % 0.0 Sodium 129 L Potassium 4.0 Chloride 97 L Carbon Dioxide 24 Anion Gap 8.0 BUN 14 Creatinine 0.9 Estimated GFR (MDRD) 59 L Glucose 106 H Calcium 8.8 Total Bilirubin 1.2 H AST 22 ALT 18 Alkaline Phosphatase 53 Total Protein 6.6 Albumin 3.8 Globulin 2.8 Albumin/Globulin Ratio 1.4 - Rads (name of study) Single view chest x-ray showing low lung volumes, otherwise unremarkable Relevant Findings:: Final report received, EMP independent interpretation of test PD Medical Decision Making - ED course ED course: CBC notable for anemia, better than prior value in December. CMP with mild hyponatremia and mild elevation in bilirubin. 87-year-old woman with chronic nausea now with worse nausea related to COVID. She was given paxlovid and had a clear chest x-ray. After that she was feeling better and passed a p.o. challenge. Departure - Departure Disposition: 01 Home, Self Care Clinical Impression: COVID-19, N&V (nausea and vomiting) Condition: Good Record reviewed to determine appropriate education?: Yes Instructions: ED Viral Syndrome Prescriptions: Metoclopramide [Reglan] 10 mg PO Q6H PRN #20 tablet PRN Reason: nausea or headache Comments: You are seen today for increased nausea in the setting of COVID-19. He did well after new moderate nausea medicine and I sent a prescription for this to the pharmacy. We also gave you the course of paxlovid antiviral medication which should be taken per package instructions. Return for new or worsening symptoms.
[2023-05-28 16:08] LABS: BASOPHILS # (AUTO) 0.1 10^3/uL (0.0-0.1); BASOPHILS % (AUTO) 0.8 %; EOSINOPHILS # (AUTO) 0.1 10^3/uL (0.0-0.7); EOSINOPHILS % (AUTO) 1.3 %; HCT - HEMATOCRIT 33.8 % (37.0-47.0); HGB - HEMOGLOBIN 11.5 g/dL (12.0-16.0); LYMPHOCYTES # (AUTO) 0.7 10^3/uL (1.5-3.5); LYMPHOCYTES % (AUTO) 7.7 %; MEAN CORPUSCULAR HEMOGLOBIN 32.7 pg (27.0-31.0); MEAN PLATELET VOLUME 11.2 fL (7.9-10.8); MONOCYTES # (AUTO) 0.8 10^3/uL (0.0-1.0); MONOCYTES % (AUTO) 9.1 %; NEUTROPHILS # (AUTO) 6.9 10^3/uL (1.5-6.6); NEUTROPHILS % (AUTO) 80.7 %; PLT - PLATELET COUNT 129 10^3/uL (130-450); RED BLOOD COUNT 3.52 10^6/uL (4.20-5.40); WHITE BLOOD COUNT 8.6 x10^3/uL (4.8-10.8)
[2023-05-28 16:08] LABS: ALBUMIN 3.8 g/dL (3.2-5.5); ALBUMIN/GLOBULIN RATIO 1.4 (1.0-2.2); BILIRUBIN,TOTAL 1.2 mg/dL (0.2-1.0); CALCIUM 8.8 mg/dL (8.5-10.3); CREATININE 0.9 mg/dL (0.6-1.3); TOTAL PROTEIN 6.6 g/dL (6.4-8.9)
--- NOTE | 2023-05-28 16:18 | XRAY Report ---
PROCEDURE: Chest 1 View X-Ray INDICATIONS: covid TECHNIQUE: One view of the chest was acquired. COMPARISON: 04/01/2021 FINDINGS: Surgical changes and devices: None. Lungs and pleura: An incomplete inspiratory result is noted, with low lung volumes and crowding of t he vascular markings. No focal infiltrates are seen. No large pneumothorax or large pleural effusion can be seen. Mediastinum: The aorta is prominent and tortuous. The cardiac contours are within normal limits. Bones and chest wall: No suspicious bony lesions. Age-appropriate degenerative changes are seen. O verlying soft tissues appear unremarkable. Davida are seen overlying both sides of the neck, which are regarded to be related to the patient's face mask. IMPRESSION: Low lung volumes, without focal infiltrates. If there is strong clinical concern for a developing or new pulmonary process, please consider a shor t-term follow-up 2 view chest series, performed in deep inspiration. Reviewed by: Sahil Cardenas MD on 05/28/2023 3:17 PM AKDT Approved by: Sahil Cardenas MD on 05/28/2023 3:17 PM AKDT Station ID: [id number]
[2023-05-28 18:38] VITALS: BP 143/74; O2SAT 95
== END 2023-05-28 18:00 | disposition home or self-care (01) ==
LOC: EDUNIT# → ED 15:23
DX: U07.1 COVID-19 (principal); R11.2 Nausea with vomiting, unspecified; Z86.73 Personal history of transient ischemic attack (TIA), and cerebral infarction without residual deficits; Z79.899 Other long term (current) drug therapy
CPT/HCPCS: 36415; 71045; 80053; 85025; 96374; 99284; J2765; J3490

== ENCOUNTER 2023-05-28 18:11 | Outpatient (CLI) | payer MEDICARE, OTHER | END 2023-05-28 18:12 | disposition home or self-care (01) | LOC: EMS 18:11 | PROVIDERS: ATTEND Emergency Medicine | DX: U07.1 COVID-19 (principal); I69.351 Hemiplegia and hemiparesis following cerebral infarction affecting right dominant side | CPT/HCPCS: A0425; A0428 ==

== ENCOUNTER 2023-06-30 08:00 | Outpatient (CLI) | payer MEDICARE, OTHER | END 2023-06-30 23:59 | disposition home or self-care (01) | LOC: LAB 08:00 | PROVIDERS: ATTEND Internal Medicine | DX: N39.0 Urinary tract infection, site not specified (principal) | CPT/HCPCS: 87077; 87086; 87181 ==

== ENCOUNTER 2023-08-01 08:00 | Outpatient (CLI) | payer MEDICARE, OTHER ==
[2023-08-01 14:45] LABS: BILIRUBIN,URINE NEGATIVE (NEGATIVE); GLUCOSE, URINE (UA) NEGATIVE (NEGATIVE); KETONES,URINE (UA) NEGATIVE (NEGATIVE); LEUKOCYTE ESTERASE, URINE LARGE (NEGATIVE); NITRITE,URINE NEGATIVE (NEGATIVE); OCCULT BLOOD,URINE TRACE-INTA (NEGATIVE); PROTEIN,URINE NEGATIVE (NEGATIVE); UROBILINOGEN,URINE 0.2 (NORMAL) E.U./dL (NORMAL)
[2023-08-01 14:59] LABS: BACTERIA,URINE Many /HPF (None Seen); CLARITY,URINE CLOUDY (CLEAR); MUCUS,URINE Few Strands; RBC,URINE 0-5 /HPF (0-5); SQUAMOUS EPITHELIAL CELL,UR FEW Squamous (<= Few); WBC,URINE >25 /HPF (0-5)
== END 2023-08-01 23:59 | disposition home or self-care (01) ==
LOC: LAB.S 08:00
PROVIDERS: ATTEND Emergency Medicine
DX: R30.0 Dysuria (principal)
CPT/HCPCS: 81001; 87077; 87086; 87181

== ENCOUNTER 2023-08-15 08:00 | Outpatient (CLI) | payer MEDICARE, OTHER ==
[2023-08-15 15:15] LABS: BILIRUBIN,URINE NEGATIVE (NEGATIVE); GLUCOSE, URINE (UA) NEGATIVE (NEGATIVE); KETONES,URINE (UA) NEGATIVE (NEGATIVE); LEUKOCYTE ESTERASE, URINE LARGE (NEGATIVE); NITRITE,URINE POSITIVE (NEGATIVE); OCCULT BLOOD,URINE SMALL (NEGATIVE); PROTEIN,URINE NEGATIVE (NEGATIVE); UROBILINOGEN,URINE 0.2 (NORMAL) E.U./dL (NORMAL)
[2023-08-15 15:33] LABS: CLARITY,URINE CLOUDY (CLEAR)
[2023-08-15 15:52] LABS: BACTERIA,URINE Many /HPF (None Seen); SQUAMOUS EPITHELIAL CELL,UR FEW Squamous (<= Few); WBC,URINE >25 /HPF (0-5)
== END 2023-08-15 23:59 | disposition home or self-care (01) ==
LOC: LAB.S 08:00
PROVIDERS: ATTEND Emergency Medicine
DX: R30.0 Dysuria (principal)
CPT/HCPCS: 81001; 87086; 87181

== ENCOUNTER 2023-08-23 07:00 | Outpatient (CLI) | payer MEDICARE, OTHER | END 2023-08-23 23:59 | disposition home or self-care (01) | LOC: LAB.S 07:00 | PROVIDERS: ATTEND Physician Assistant Medical | DX: N39.0 Urinary tract infection, site not specified (principal) | CPT/HCPCS: 87077; 87086; 87181 ==

== ENCOUNTER 2023-09-01 13:51 | Outpatient (CLI) | payer MEDICARE, OTHER ==
[2023-09-01 20:03] LABS: ALBUMIN 3.6 g/dL (3.2-5.5); ALBUMIN/GLOBULIN RATIO 1.5 (1.0-2.2); BILIRUBIN,TOTAL 0.9 mg/dL (0.2-1.0); CALCIUM 9.1 mg/dL (8.5-10.3); POTASSIUM 4.7 mmol/L (3.5-4.5)
== END 2023-09-01 13:52 | disposition home or self-care (01) ==
LOC: LAB.S 13:51
PROVIDERS: ATTEND Internal Medicine
DX: R11.0 Nausea (principal)
CPT/HCPCS: 36415; 80053

== ENCOUNTER 2023-09-27 13:53 | Outpatient (CLI) | payer MEDICARE, OTHER ==
[2023-09-27 20:49] LABS: ALBUMIN 3.6 g/dL (3.2-5.5); ALBUMIN/GLOBULIN RATIO 1.4 (1.0-2.2); BILIRUBIN,TOTAL 0.7 mg/dL (0.2-1.0); POTASSIUM 4.4 mmol/L (3.5-4.5); TOTAL PROTEIN 6.1 g/dL (6.4-8.9)
== END 2023-09-27 13:54 | disposition home or self-care (01) ==
LOC: LAB.S 13:53
PROVIDERS: ATTEND Internal Medicine
DX: E87.1 Hypo-osmolality and hyponatremia (principal)
CPT/HCPCS: 36415; 80053

== ENCOUNTER 2023-12-12 08:00 | Outpatient (CLI) | payer MEDICARE, OTHER | END 2023-12-12 23:59 | disposition home or self-care (01) | LOC: LAB.S 08:00 | PROVIDERS: ATTEND Registered Nurse | DX: N39.0 Urinary tract infection, site not specified (principal) | CPT/HCPCS: 87086; 87181 ==

== ENCOUNTER 2024-01-30 07:00 | Outpatient (CLI) | payer MEDICARE, OTHER ==
[2024-01-30 21:00] LABS: BILIRUBIN,URINE NEGATIVE (NEGATIVE); GLUCOSE, URINE (UA) NEGATIVE (NEGATIVE); KETONES,URINE (UA) NEGATIVE (NEGATIVE); LEUKOCYTE ESTERASE, URINE LARGE (NEGATIVE); NITRITE,URINE NEGATIVE (NEGATIVE); OCCULT BLOOD,URINE NEGATIVE (NEGATIVE); PH,URINE 5.5 PH (5.0-7.5); PROTEIN,URINE NEGATIVE (NEGATIVE); UROBILINOGEN,URINE 0.2 (NORMAL) E.U./dL (NORMAL)
[2024-01-30 21:13] LABS: CLARITY,URINE CLOUDY (CLEAR)
[2024-01-30 21:35] LABS: RBC,URINE 0-5 /HPF (0-5); SQUAMOUS EPITHELIAL CELL,UR NONE SEEN (<= Few)
[2024-01-30 21:36] LABS: BACTERIA,URINE Many /HPF (None Seen)
== END 2024-01-30 23:59 | disposition home or self-care (01) ==
LOC: LAB.S 07:00
PROVIDERS: ATTEND Emergency Medicine
DX: R30.0 Dysuria (principal)
CPT/HCPCS: 81001; 87086; 87181